=== PATIENT | male | born 1945 | race Hispanic/Latino ===

== ENCOUNTER 2018-07-04 19:16 | Inpatient (IN) | payer MEDICARE ==
[~2018-07-04] VITALS: Ht 172.7 cm; Wt 83.9 kg
[~2018-07-04 19:16] MED LIST: OMEGA FISH OIL PO; TAMSULOSIN HCL0.4 MG PO; VITAMIN D PO
--- OUTSIDE RECORDS SUMMARY | 2018-07-04 19:19 | XMS REPORT | Summary of Care ---
Author Author [facility] [place] Organization [facility] [place] Address Unknown Phone Unavailable Encounter HQ Encntr_alias(FIN) [id number] Date(s): 11/08/16 - 11/08/16 [facility] [place] [address] [place] [phone] Discharge Disposition: Home or Self Care Attending Physician: Walker Larry MD Vital Signs No data available for this section Problem List No data available for this section Allergies, Adverse Reactions, Alerts No data available for this section Medications No data available for this section Results No data available for this section Immunizations No data available for this section Procedures No data available for this section Social History No data available for this section Assessment and Plan No data available for this section
--- OUTSIDE RECORDS SUMMARY | 2018-07-04 19:19 | XMS REPORT | Summary of Care ---
Author Organization Unknown Address Unknown Phone Unavailable Encounter HQ Encntr_alex(DEE DEE) [id number] Date(s): 06/26/14 - 06/26/14 [facility] [address] Discharge Disposition: Home Physician Attending: Amadou Baker MD Physician_Referring: Amadou aBker MD Reason for Visit 789.00 ABD` PAIN Problem List No data available for this section Allergies, Adverse Reactions, Alerts No data available for this section Medications No data available for this section Medications Administered During Your Visit No data available for this section Immunizations No data available for this section
--- OUTSIDE RECORDS SUMMARY | 2018-07-04 19:19 | XMS REPORT | Summary of Care ---
Author Author [facility] [place] Organization [facility] [place] Address Unknown Phone Unavailable Encounter HQ Encntr_alias(FIN) [id number] Date(s): 11/08/16 - 11/08/16 [facility] [place] [address] [place] [phone] Discharge Disposition: Home or Self Care Attending [...]
[2018-07-04] MEDS ORDERED: ASPIRIN 81 MG CHEW TAB PO ONE (19:45)
[2018-07-04] MEDS ORDERED: CEFTRIAXONE SOD 1 GM VIAL IV ONE (19:45)
[2018-07-04 19:50] LABS: BASOPHILS % 0.5 % (0.0-1.0); EOSINOPHILS % 0.5 % (0.0-6.0); HEMATOCRIT 32.6 % (38.2-49.6); HEMOGLOBIN 11.5 g/dL (14.0-18.0); LYMPHOCYTES # (AUTO) 0.4 (1.0-3.2); LYMPHOCYTES % 20.4 % (18.0-39.1); MEAN CORPUSCULAR HEMOGLOBIN 30.6 pg (28-32); MEAN CORPUSCULAR HGB CONC 35.3 g/dL (31-35); MEAN CORPUSCULAR VOLUME 86.7 fL (81-99); MONOCYTES # (AUTO) 0.1 (0.2-0.8); MONOCYTES % 6.5 % (4.4-11.3); NEUTROPHILS # (AUTO) 1.5 (2.1-6.9); NEUTROPHILS % 70.7 % (38.7-80.0); PLATELET COUNT 181 x10e3/uL (140-360); RED BLOOD COUNT 3.76 x10e6/uL (4.3-5.7); RED CELL DISTRIBUTION WIDTH 12.5 % (11.7-14.4)
[2018-07-04 19:58] LABS: INR 1.02; PROTHROMBIN TIME 14.3 seconds (11.9-14.5)
[2018-07-04 20:00] LABS: STREPTOCOCCUS GRP A ANTIGEN NEGATIVE (NEGATIVE)
--- NOTE | 2018-07-04 20:05 | Diagnostic Imaging Report ---
EXAMINATION: CHEST 2 VIEWS INDICATION: Strong cough and congestion for 2 weeks. COMPARISON: 05/02/2017. FINDINGS: TUBES and LINES: None. LUNGS: Lungs are well inflated. Mild perihilar, peribronchial thickening. There is no evidence of pneumonia or pulmonary edema. PLEURA: No pleural effusion or pneumothorax. HEART AND MEDIASTINUM: The cardiomediastinal silhouette is unremarkable. BONES AND SOFT TISSUES: No acute osseous lesion. UPPER ABDOMEN: No free air under the diaphragm. IMPRESSION: Mild perihilar, peribronchial thickening. No consolidation. Signed by: Dr. Gladis Amor M.D. on 07/04/2018 8:01 PM
[2018-07-04 20:07] LABS: CREATINE KINASE 103 IU/L (30-200)
[2018-07-04 20:08] LABS: INFLUENZAE A&B ANTIGEN (RAPID) NEGATIVE (NEGATIVE)
[2018-07-04 20:09] LABS: ALANINE AMINOTRANSFERASE 20 IU/L (0-55); ALBUMIN 3.3 g/dL (3.5-5.0); ALBUMIN/GLOBULIN RATIO 0.8 (0.8-2.0); ALKALINE PHOSPHATASE 60 IU/L (40-150); ANION GAP 11.5 mmol/L (8-16); BLOOD UREA NITROGEN 14 mg/dL (7-26); BUN/CREATININE RATIO 16 (6-25); CALCIUM 8.6 mg/dL (8.4-10.2); CARBON DIOXIDE 23 mmol/L (22-29); CHLORIDE 96 mmol/L (98-107); CREATININE, SERUM 0.88 mg/dL (0.72-1.25); EST GLOMERULAR FILTRATION RATE > 60 ML/MIN (60-); GLUCOSE 138 mg/dL (74-118); POTASSIUM 3.5 mmol/L (3.5-5.1); SODIUM 127 mmol/L (136-145)
[2018-07-04] MEDS ORDERED: ALBUTEROL SULF 0.083% NEB SOLN 3 ML NEB NEB STA (20:19)
[2018-07-04] MEDS ORDERED: IPRATROPIUM BROMIDE 0.02% 2.5 ML NEB NEB STA (20:19)
[2018-07-04] MEDS: CEFTRIAXONE SOD 1 GM VIAL IV SCH (20:32)
[2018-07-04] MEDS: ALBUTEROL SULF 0.083% NEB SOLN 3 ML NEB NEB SCH (20:40)
--- OUTSIDE RECORDS SUMMARY | 2018-07-04 21:06 | XMS REPORT ---
Author Author [facility] Address Unknown Phone Unavailable Care Team Providers Care Electromedical Service Engineer Name Role Phone Missy CACERES Unavailable Unavailable HAMPEL, LISBET Unavailable Unavailable Problems This patient has no known problems. Allergies, Adverse Reactions, Alerts This patient has no known allergies or adverse reactions. Medications This patient has no known medications. Results Test Description Test Time Test Comments Text Results Atomic Results Result Comments CHEST 2 VIEWS 2018-07-04 20:00:00 [place] [address] Patient Name: JAIME ZARAGOZA MR #: [id number] : 1945 Age/Sex: 73/M Req #: [id number] Adm Physician: Ordered by: CAROL CACERES MD Report #: [id number] Location: ER Room/Bed: Procedure: [id number] DX/CHEST 2 VIEWS Exam Date: Exam Time: REPORT STATUS: Signed EXAMINATION: CHEST 2 VIEWS INDICATION: Strong cough and congestion for 2 weeks. COMPARISON: 05/02/2017. FINDINGS: TUBES and LINES: None. LUNGS: Lungs are well inflated. Mild perihilar, peribronchial thickening. There is no evidence of pneumonia or pulmonary edema. PLEURA: No pleural effusion or pneumothorax. HEART AND MEDIASTINUM: The cardiomediastinal silhouette is unremarkable. BONES AND SOFT TISSUES: No acute osseous lesion. UPPER ABDOMEN: No free air under the diaphragm. IMPRESSION: Mild perihilar, peribronchial thickening. No consolidation. Signed by: Dr. Gladis Alfredo M.D. on 07/04/2018 8:01 PM Dictated By: KISHAN ALFREDO MD, MD 00 Transcribed By: STEPHAN on 07/04/182000 COPY TO: CAROL CACERES MD CHEST 2 VIEWS [place] [address] Patient Name: JAIME ZARAGOZA MR #: [id number] : 1945 Age/Sex: 72/M Req #: [id number] Adm Physician: Ordered by: LISBET BROOKS MD Report #: [id number] Location: OR Room/Bed: Procedure: [id number] DX/CHEST 2 VIEWS Exam Date: 05/02/17 Exam Time: 1330 REPORT STATUS: Signed PROCEDURE: Frontal and lateral views of the chest. COMPARISON: None. INDICATIONS: PRE OPERATIVE CHEST X-RAY UROLIFT FINDINGS: Lines/tubes: None. Lungs: The lungs are well inflated and clear. There is no evidence of pneumonia or pulmonary edema. Pleura: There is no pleural effusion or pneumothorax. Heart and mediastinum: The heart and the mediastinum are normal. Bones: No acute bony abnormality. IMPRESSION: 1. No acute cardiopulmonary disease. Gladis Alfredo M.D. Dictated by: Gladis Alfredo M.D. on 05/02/2017 at 14:11 Electronically approved by: Gladis Alfredo M.D. on 05/02/2017 at 14:11 Dictated By: KISHAN ALFREDO MD, MD 10 Transcribed By: JOSE GUADALUPE on 05/02/171410 COPY TO: LISBET BROOKS MD
--- OUTSIDE RECORDS SUMMARY | 2018-07-04 21:06 | XMS REPORT | Continuity of Care Document ---
Author Author [facility] Address Unknown Phone Unavailable Problems Problem Status Onset Date Classification Date Reported Comments Source DX: R10.84=GENERALIZED ABDOMINAL PAIN Active 07/25/2016 [facility] K80.20 - CALCULUS OF GALLBLADDER W/O CH Active 07/05/2016 [facility] [place] 789.00 ABD` PAIN Active 06/24/2014 [facility] GENERALIZED ABDOMINAL PAIN Active [facility] Medications Medication Details Route Status Patient Instructions Ordering Provider Order Date Source Allergies, Adverse Reactions, Alerts Substance Category Reaction Severity Reaction type Status Date Reported Comments Source Immunizations Immunization Date Given Site Status Last Updated Comments Source Results Order Name Results Value Reference Range Date Interpretation Comments Source Retroperitoneal Complete US Retroperitoneal Complete US EXAM: Retroperitoneal Complete US HISTORY: N18.2 Chronic kidney disease, stage 2 (mild) COMPARISON: 08/01/2016 FINDINGS: Right kidney: Length and cortical thickness are 11.2 and 2.2 cm, respectively. No hydronephrosis, suspicious mass, or large shadowing calculus. There is a 3 cm cyst in the superior pole the right kidney which is simple. Left Kidney: Length and cortical thickness are 11.5 and 2.1 cm, respectively. No hydronephrosis, suspicious mass, or large shadowing calculus. There are 2 subcentimeter cyst arising from the left kidney which also appears simple and possibly new. Bladder: No wall thickening, mural nodularity, or suspicious intraluminal echoes are identified. Bilateral ureteral jets are patent. The prostate measures 3.7 x 4.3 x 5.5 cm in Vascular: Visualized portions of the IVC are patent. There is no obvious aneurysmal dilatation of the aorta. The origins of the common iliac arteries are not seen sonographically. IMPRESSION: Simple renal cysts. The largest cyst is stable. 11/08/2016 - - Read by: Kiesha Odom MD Dictated Date/time: 11/08/16 13:36 Electronically Signed by: Kiesha Odom MD 11/08/16 13:38 FINAL REPORT [facility] [place] Abdomen AP DX Abdomen AP DX Patient Name: AMADOU MARTINEZ : 1945; Age: 71 years y/o Male MR: [id number] * ABDOMEN, 1 view HISTORY: Generalized nonspecific abdominal pain, hematuria. COMPARISON: None TECHNIQUE: A supine radiograph of the abdomen was obtained. IMPRESSION: 1. Cholelithiasis. Numerous gallstones are noted, the largest measuring approximately 13 x 8 mm. 2. No definite urinary tract calculi are identified. 3. There is a moderate amount of fecal material within the colon (constipation). The bowel gas pattern is otherwise unremarkable. 4. Mild to moderate scattered degenerative changes involving the lumbar spine. SL: [id number] 08/01/2016 - - Read by: Lio Flores MD Dictated Date/time: 08/01/16 08:04 Electronically Signed by: Lio Flores MD 08/01/16 08:06 FINAL REPORT [facility] Abdomen complete US Abdomen complete US Patient Name: AMADOU MARTINEZ : 1945; Age: 71 years y/o Male MR: [id number] Study: Abdomen complete US 08/01/2016 7:10 AM CLINICAL DIETICIAN Ordering Physician: Noemi Cardozo MD Clinical Indication: hematuria; generalized acute abdominal pain Comparison: Abdomen ultrasound 06/26/2014. TECHNIQUE: Grayscale and limited color sonographic evaluation of the abdomen was performed with standard technique. FINDINGS: LIVER: The visualized liver shows normal contour, size, and morphology with normal parenchymal echo texture. BILE DUCTS: The intrahepatic and extrahepatic bile ducts are not dilated with the common bile duct measuring 5 mm. The distal common bile duct is not well seen. GALLBLADDER: Absent. PANCREAS: The pancreas is obscured by overlying bowel gas and inadequately visualized. SPLEEN: The spleen is unremarkable and measures 11 x 4 x 4 cm. KIDNEY: The right kidney measures 10 x 5 x 6 cm. 2.7 cm cyst right renal upper pole cortex with simple characteristics. The left kidney measures 10.7 x 4.5 x 4.8 cm. No pelvocaliectasis, nephrolithiasis or renal mass lesion identified bilaterally. AORTA AND INFERIOR VENA CAVA: Proximal aorta poorly seen secondary to bowel gas. Mid and distal aorta nonaneurysmal. Visualized IVC normal. ASCITES: There is no abdominal ascites. IMPRESSION: Prior cholecystectomy. No pathologic biliary ductal dilatation or acute biliary findings. 2.7 cm right renal upper pole simple cyst. No solid renal mass or calculus is identified. Note that the urinary bladder was not specifically evaluated by this study. In the event hematuria persists, consider further workup with dedicated renal CT, considering the limitations of ultrasound related to this patient's body habitus. SL: [id number] 08/01/2016 - - Read by: Herman Mike MD Dictated Date/time: 08/01/16 10:43 Electronically Signed by: Herman Mike MD 08/01/16 11:00 FINAL REPORT [facility] Vital Signs Vital Sign Value Date Comments Source Encounters Location Location Details Encounter Type Encounter Number Reason For Visit Attending Provider ADM Date DC Date Status Source [facility]patient [id number] Amadou Baker 06/26/2014 06/27/2014 [facility] [place] [facility] [id number] Walker Larry 11/08/2016 11/09/2016 [facility] Procedures Procedure Code Date Perfomer Comments Source
[2018-07-04] MEDS: AZITHROMYCIN 500MG/NS 250 ML 250 ML IV SCH (21:33)
[2018-07-04] MEDS: SODIUM CHLORIDE 0.9% 1000ML 1,000 ML IV SCH (21:33)
[2018-07-04] MEDS ORDERED: CETIRIZINE HCL10 MG PO (21:53)
[2018-07-04] MEDS ORDERED: LISINOPRIL10 MG PO (21:53)
[2018-07-05] MEDS: ACETAMINOPHEN 325 MG TAB PO PRN ×3 (00:11→16:41)
[2018-07-05] MEDS: ALBUTEROL SULF 0.083% NEB SOLN 3 ML NEB NEB SCH ×5 (00:40→23:12)
[2018-07-05 04:59] LABS: BASOPHILS % 0.5 % (0.0-1.0); HEMATOCRIT 28.4 % (38.2-49.6); HEMOGLOBIN 9.9 g/dL (14.0-18.0); LYMPHOCYTES # (AUTO) 0.6 (1.0-3.2); LYMPHOCYTES % 28.9 % (18.0-39.1); MEAN CORPUSCULAR HEMOGLOBIN 30.2 pg (28-32); MEAN CORPUSCULAR HGB CONC 34.9 g/dL (31-35); MEAN CORPUSCULAR VOLUME 86.6 fL (81-99); MONOCYTES # (AUTO) 0.2 (0.2-0.8); MONOCYTES % 7.9 % (4.4-11.3); NEUTROPHILS # (AUTO) 1.2 (2.1-6.9); NEUTROPHILS % 61.6 % (38.7-80.0); PLATELET COUNT 143 x10e3/uL (140-360); RED BLOOD COUNT 3.28 x10e6/uL (4.3-5.7); RED CELL DISTRIBUTION WIDTH 12.7 % (11.7-14.4)
[2018-07-05 05:12] LABS: CREATINE KINASE 76 IU/L (30-200)
[2018-07-05] MEDS: IPRATROPIUM BROMIDE 0.02% 2.5 ML NEB NEB SCH ×3 (07:15→19:48)
[2018-07-05 08:12] LABS: ANISOCYTOSIS SLIGHT; BAND NEUTROPHILS % (MANUAL) 2 %; HYPOCHROMASIA MODERATE; LYMPHOCYTES % (MANUAL) 28 % (19-48); MONOCYTES % (MANUAL) 6 % (3.4-9.0); NEUTROPHILS % (MANUAL) 64 % (40-74)
[2018-07-05 08:13] LABS: PLATELET ESTIMATE SLIGHTLY DECREASED; PLATELET MORPHOLOGY COMMENT NORMAL; RBC MORPHOLOGY COMMENT NORMAL
--- NOTE | 2018-07-05 10:17 | History and Physical ---
Mr. Napoles is a 73-year-old man with a history of hyperlipidemia. Brought to the emergency room because for 2 weeks he has been having body aches, fatigue, sore throat, cough with phlegm, and fever. He was treated as an outpatient and saw the doctor twice, but he did not get better, so he decided to come to the emergency room. PAST MEDICAL HISTORY: Hyperlipidemia. SURGICAL HISTORY: Had a cholecystectomy and prostate surgery. ALLERGIES: NO KNOWN DRUG ALLERGIES. SOCIAL HISTORY: He does not smoke, but he used to drink beer. He quit 2 years ago. PHYSICAL EXAMINATION GENERAL: Today, he is awake and alert. VITALS: Temperature 98.5, blood pressure 123/61. HEART: Regular rate. LUNGS: Decreased breath sounds bilaterally. ABDOMEN: Distended and soft. LOWER EXTREMITIES: No edema. No erythema. LABS: On the blood work, white count is 1.9, hemoglobin 9.9, hematocrit 28.4. Sodium 127, potassium 3.5, glucose 138. Influenza negative. Strep negative. Legionella is pending. Blood cultures and throat cultures are pending. Chest x-ray shows mild perihilar, peribronchial thickening. No consolidation. ASSESSMENT AND PLAN 1. Probable pneumonia. 2. Hyperlipidemia. 3. Elevated blood sugar. 4. Leukopenia. 5. Anemia. The plan at the present time is to get a pulmonary consult with Dr. Ewing. We are going to continue IV antibiotics, azithromycin and Rocephin. Neb treatments. Cough medications. All of this was discussed with the patient and family at bedside. All questions were answered to satisfaction. Job#: [id number]
[2018-07-05] MEDS ORDERED: SODIUM CHLORIDE 0.9% 50ML 50 ML ONE (11:45)
[2018-07-05] MEDS ORDERED: IOPAMIDOL 370 MG/ML 200 ML INFUS..BTL INJ ONE (11:46)
--- NOTE | 2018-07-05 11:57 | Diagnostic Imaging Report ---
EXAM: CT Chest WITH contrast 07/05/2018 9:58 AM INDICATION: ^PER DR PABLO ^[id number] ^1100 COMPARISON: Chest radiograph 07/04/2018 TECHNIQUE: Chest was scanned utilizing a multidetector helical scanner from the lung apex through the level of the adrenal glands after administration of IV contrast. Coronal and sagittal reformations were obtained. IV CONTRAST: 100 mL Omnipaque 300 ORAL CONTRAST: None COMPLICATIONS: None RADIATION DOSE: Total DLP: 481.7 mGy*cm Estimated effective dose: (DLP x 0.015 x size factor) mSv CTDIvol has been reviewed. It is below the limits set by the Radiation Protocol Committee (RPC). FINDINGS: LINES/ TUBES: None. LUNGS AND AIRWAYS: Diffuse bilateral central peribronchial wall thickening with associated septal thickening and faint bilateral groundglass opacities. No lobar consolidations. Indeterminate 4 mm solid pulmonary nodule in the right upper lobe on series 3, image 33. Subsegmental atelectasis in both lower lobes. There is moderate narrowing of the proximal right upper lobe pulmonary bronchus on series 3, image 49 due to a combination of adjacent hilar lymphadenopathy and compression by the adjacent pulmonary artery. PLEURA: The pleural spaces are clear. HEART AND MEDIASTINUM: The thyroid gland is normal. Few mildly enlarged mediastinal and bilateral hilar note calcified lymph nodes. For example: 1.4 cm transverse diameter lymph node in the right lower paratracheal region (4R) 0.8 cm left para-aortic lymph node 1.9 cm right hilar lymph node on series 2, image 52. Mild cardiomegaly. There is no pericardial effusion. No coronary artery calcifications. The thoracic aorta is unremarkable. The main pulmonary artery is borderline in size measuring 3 cm in diameter. UPPER ABDOMEN: Unremarkable. BONES: The visualized bony thorax is within normal limits. SOFT TISSUES: Unremarkable. IMPRESSION: 1. CT findings suggestive of pulmonary edema with possible superimposed viral infection. 2. Mediastinal and bilateral hilar lymphadenopathy may be reactive but recommend follow-up in 6-[address] chest with IV contrast to demonstrate stability and exclude lymphoproliferative disorder. 3. Mild cardiomegaly. Recommend further evaluation with echocardiogram if not obtained yet. 4. No lobar consolidations. Signed by: Dr. Carrie Sanders M.D. on 07/05/2018 11:54 AM
--- NOTE | 2018-07-05 13:05 | Consultation ---
DATE OF CONSULTATION: PULMONARY CONSULTATION REASON FOR THE CONSULT: Cough, shortness of breath. HISTORY OF PRESENT ILLNESS: Mr. Napoles is a 73-year-old male with a history of hypertension, hyperlipidemia, presented to the emergency room with cough, congestion and sore throat. He reports that all these symptoms started 2 days ago and progressively got worse. He denies any complaints of chest pain, nausea, vomiting, diarrhea. REVIEW OF SYSTEMS GENERAL: Denies any fever. Was having chills. HEAD: Denies any head trauma. ENT: Denies any earache. CVS: Denies any chest pain. RESPIRATORY: Shortness of breath. GI: Denies any nausea or vomiting. REMAINDER: The rest of the review of systems are negative except as in the HPI. PAST MEDICAL HISTORY 1. Hypertension. Patient is on lisinopril. 2. Benign prostatic hypertrophy. PAST SURGICAL HISTORY 1. Cholecystectomy. 2. Prostate surgery. FAMILY AND SOCIAL HISTORY: Does not smoke, does not drink. PHYSICAL EXAMINATION VITAL SIGNS: Temperature 98.5, pulse of 73, blood pressure 123/61, respiratory rate of 18, O2 sat 98% on room air. HEENT: Head atraumatic, normocephalic. Pupils reactive. NECK: Supple. CHEST: Clear to auscultation bilaterally. No wheezing, no crackles. HEART: S1/S2 audible. ABDOMEN: Soft, nontender, nondistended. EXTREMITIES: No clubbing, cyanosis or edema. NEUROLOGICALLY: Awake and alert. LABS: Sodium 127, potassium 3.5, BUN 14, creatinine 0.8. Troponins have been negative. White count 1.90, was 2.16 yesterday. Hemoglobin 9.9. Platelets 143. INR is 1.02. CHEST X-RAY: I have reviewed the images. Possible new pneumonia like peribronchial thickening. ASSESSMENT/PLAN: Mr. Napoles is a 73-year-old male who presented with cough, congestion, hyponatremia and leukopenia. CURRENT PROBLEMS 1. Likely has pneumonia. The chest x-ray is not very classic for pneumonia. I will do a CT chest without contrast and follow up. 2. Cytopenias. Could be due to infections. Will closely follow. 3. Hyponatremia. Also can be part of lung infection. Can have possibility of lung mass that can cause hyponatremia as well. Further recommendation after reviewing the CT of the chest. 4. Agree with Rocephin and azithromycin at this point. Thank you for this consult. Job#: [id number] EV
[2018-07-05 14:02] LABS: CREATINE KINASE MB 1.4 ng/mL (0-5.0)
[2018-07-05 15:40] VITALS: BP 143/63
[2018-07-05] MEDS: SODIUM CHLORIDE 0.9% 1000ML 1,000 ML IV SCH (16:40)
[2018-07-05 16:41] VITALS: BP 143/63
[2018-07-05 20:00] VITALS: BP 120/64
[2018-07-05] MEDS: CEFTRIAXONE SOD 1 GM VIAL IV SCH (20:56)
[2018-07-05] MEDS: AZITHROMYCIN 500MG/NS 250 ML 250 ML IV SCH (20:57)
[2018-07-06] MEDS: ALBUTEROL SULF 0.083% NEB SOLN 3 ML NEB NEB SCH ×5 (02:30→20:35)
[2018-07-06] MEDS: IPRATROPIUM BROMIDE 0.02% 2.5 ML NEB NEB SCH ×4 (02:30→20:35)
[2018-07-06 04:00] VITALS: BP 133/67
[2018-07-06] MEDS: SODIUM CHLORIDE 0.9% 1000ML 1,000 ML IV SCH (04:25)
[2018-07-06 06:24] LABS: HEMATOCRIT 30.9 % (38.2-49.6); HEMOGLOBIN 10.7 g/dL (14.0-18.0); MEAN CORPUSCULAR HEMOGLOBIN 30.3 pg (28-32); MEAN CORPUSCULAR HGB CONC 34.6 g/dL (31-35); MEAN CORPUSCULAR VOLUME 87.5 fL (81-99); PLATELET COUNT 154 x10e3/uL (140-360); RED BLOOD COUNT 3.53 x10e6/uL (4.3-5.7); RED CELL DISTRIBUTION WIDTH 12.8 % (11.7-14.4)
[2018-07-06 06:45] LABS: ANION GAP 10.9 mmol/L (8-16); BLOOD UREA NITROGEN 9 mg/dL (7-26); BUN/CREATININE RATIO 11 (6-25); CALCIUM 8.2 mg/dL (8.4-10.2); CARBON DIOXIDE 25 mmol/L (22-29); CHLORIDE 99 mmol/L (98-107); CREATININE, SERUM 0.85 mg/dL (0.72-1.25); EST GLOMERULAR FILTRATION RATE > 60 ML/MIN (60-); GLUCOSE 115 mg/dL (74-118); POTASSIUM 3.9 mmol/L (3.5-5.1); SODIUM 131 mmol/L (136-145)
[2018-07-06 08:20] VITALS: BP 133/67
[2018-07-06 08:56] VITALS: BP 129/62
--- NOTE | 2018-07-06 09:39 | Progress Note ---
DATE: July 06, 2018 Mr. Napoles is a 73-year-old man with a history of hyperlipidemia. He came to the emergency room complaining of 3 weeks of body aches, fatigue, cough and fever. He was treated as an outpatient twice, but he did not improve, so he decided to come to the emergency room. PHYSICAL EXAMINATION GENERAL: Today, he is awake and alert. He is still coughing. VITALS: Temperature is 99.8. Blood pressure is 133/67. HEART: Regular rate. LUNGS: Poor inspiratory effort. ABDOMEN: Soft. LABS: On the blood work, potassium is 3.9, creatinine 0.85. White count is 2.26, hemoglobin 10.7, hematocrit 30.9. He had a CAT scan done yesterday of the chest that shows findings suggestive of pulmonary edema with possible superimposed viral infection. Some hilar lymphadenopathy. Mild cardiomegaly. ASSESSMENT AND PLAN 1. CT findings compatible with pulmonary edema. 2. Viral pneumonia. 3. Hyperlipidemia. 4. Elevated blood sugar. 5. Leukopenia. 6. Anemia. The plan at the present time is to continue IV antibiotics, nebulizer treatments. Fruit Grower already saw the patient. We are going to get cardiology consult with Dr. Casiano. All of this was discussed with the patient and family at bedside. All questions were answered to satisfaction. Job#: [id number]
[2018-07-06 09:42] LABS: ANISOCYTOSIS SLIGHT; BAND NEUTROPHILS % (MANUAL) 3 %; HYPOCHROMASIA SLIG; LYMPHOCYTES % (MANUAL) 13 % (19-48); MONOCYTES % (MANUAL) 4 % (3.4-9.0); NEUTROPHILS % (MANUAL) 80 % (40-74); PLATELET ESTIMATE ADEQUATE; PLATELET MORPHOLOGY COMMENT NORMAL; RBC MORPHOLOGY COMMENT NORMAL
[2018-07-06 12:01] VITALS: BP 134/64
[2018-07-06] MEDS: ACETAMINOPHEN 325 MG TAB PO PRN (16:02)
[2018-07-06 16:47] VITALS: BP 140/67
--- NOTE | 2018-07-06 19:08 | Consultation ---
DATE OF CONSULTATION: July 06, 2018 CARDIOLOGY CONSULTATION REQUESTING PHYSICIAN: Dr. Nica Fagan. REASON FOR CONSULTATION: Pulmonary edema. HISTORY OF PRESENT ILLNESS: This is a 73-year-old man with history of hyperlipidemia and hypertension, who presents with complaints of cough and congestion. Patient reports he has been having productive cough with phlegm for approximately last 2 weeks as well as subjective fever. She denies any chest pain, palpitations, shortness of breath, edema, orthopnea or PND. Due to suspected pneumonia, patient had CT chest which revealed pulmonary edema with possible superimposed viral infection, mediastinal, and bilateral hilar lymphadenopathy as well as mild cardiomegaly. Cardiology was consulted for further evaluation. REVIEW OF SYSTEMS: Negative except as per HPI. PAST MEDICAL HISTORY 1. Hypertension. 2. Hyperlipidemia. PAST SURGICAL HISTORY 1. Cholecystectomy. 2. Prostate surgery. ALLERGIES: Please see EMR. MEDICATIONS: Please see medication list. SOCIAL HISTORY: Denies tobacco, alcohol or illicit drugs. FAMILY HISTORY: Noncontributory to current illness. PHYSICAL EXAMINATION VITAL SIGNS: Temperature 99.1 degrees, pulse 77, respiratory rate 16, blood pressure 134/64, oxygen saturation 97%. GENERAL: Awake and alert, well-developed, well-nourished, in no acute distress. HEENT: Normocephalic, atraumatic. Pupils are equal. No scleral icterus. NECK: Supple. No thyromegaly or cervical lymphadenopathy. No carotid bruit. LUNGS: Clear to auscultation bilaterally. No wheezes or crackles. CARDIOVASCULAR: Normal rate, regular rhythm. No murmur. Normal S1 and S2. ABDOMEN: Soft and nontender. EXTREMITIES: No edema. NEURO: Nonfocal exam. LABS: WBC 2.26, hemoglobin 10.7, hematocrit 30.9, and platelets 154. Sodium 131, potassium 3.9, chloride 99, CO2 of 25, BUN 9, creatinine 0.85. BNP 26.4. IMPRESSION 1. CT finding suggestive of pulmonary edema with cardiomegaly. 2. Viral pneumonia. 3. Hyperlipidemia. 4. Hypertension. 5. Leukopenia. 6. Anemia. RECOMMENDATIONS: No evidence of myocardial infarction was seen on serial cardiac biomarkers. We will obtain EKG and echocardiogram for further evaluation. Check BNP. Further recommendations pending test results. Thank you for this consult. We will continue to follow. Job#: [id number] VAS
[2018-07-06] MEDS: AZITHROMYCIN 500MG/NS 250 ML 250 ML IV SCH (20:28)
[2018-07-06] MEDS: METHYLPREDNISOLONE SOD SUCC 40 MG/ML VIAL IV SCH (20:28)
[2018-07-06] MEDS: CEFTRIAXONE SOD 1 GM VIAL IV SCH (20:28)
[2018-07-06] MEDS: BUDESONIDE 0.5MG/2 ML NEB INH SCH (20:35)
[2018-07-06 21:04] VITALS: BP 131/60
[2018-07-07] VITALS: BP 137/64
[2018-07-07] MEDS: ALBUTEROL SULF 0.083% NEB SOLN 3 ML NEB NEB SCH ×5 (00:10→15:00)
[2018-07-07 04:34] VITALS: BP 118/56
[2018-07-07] MEDS: IPRATROPIUM BROMIDE 0.02% 2.5 ML NEB NEB SCH ×3 (04:35→10:30)
[2018-07-07] MEDS: BUDESONIDE 0.5MG/2 ML NEB INH SCH (07:00)
[2018-07-07 07:35] VITALS: BP 147/76
[2018-07-07 07:38] VITALS: BP 147/76
[2018-07-07] MEDS: METHYLPREDNISOLONE SOD SUCC 40 MG/ML VIAL IV SCH (09:00)
[2018-07-07 11:42] VITALS: BP 142/69
--- NOTE | 2018-07-07 14:42 | Consultation ---
DATE OF CONSULTATION: REASON FOR CONSULTATION: Pneumonia, community acquired. HISTORY OF PRESENT ILLNESS: This patient who is a very pleasant 73-year-old male who has history of hyperlipidemia, comes in to the emergency room with 2 weeks' history of body aches, fatigue, sore throat, and cough. He said cough is whitish of sputum. He told the physician in the emergency room that he was running fever in the house, so he was admitted but when I met with him today now he says he is feeling much better. His breathing is better. His cough is better. He said there was no fever. The patient has history of hyperlipidemia, cholecystectomy, some type of prostate surgery. ALLERGIES: NKA. SOCIAL HISTORY: There is no smoking, drug abuse, or alcohol abuse. FAMILY HISTORY: Noncontributory. REVIEW OF SYSTEMS GENERAL: At the present time, the patient is doing much better as mentioned above. HEENT: Negative. PULMONARY: Negative except for mentioned above. GI: Negative. SKIN: There is no rash. All other systems are within normal limits except for the cough which he says is better and he says there is minimum cough at the present time. Patient was admitted. He had a CAT scan, chest, was reviewed. His blood cultures were negative. His white count is 2.26, now 2.16. Hemoglobin 11, hematocrit 32, his platelets 181. His influenza is negative. PHYSICAL EXAMINATION GENERAL: He is currently alert, oriented, does not seem to be in acute distress. VITALS: Stable. Currently afebrile. HEENT: He does not appear icteric. NECK: Supple. CHEST: Clear. COR: S1, S2. ABDOMEN: Soft. Bowel sounds present. EXTREMITIES: No edema. IMPRESSION 1. Pneumonia, community acquired. Clinically seems to be better. Can give oral Levaquin 500 mg p.o. daily for 8 days. 2. Pulmonary edema. Cardiology is following. 3. Abnormal computed tomography scan. I would recommend to recheck in 6 months. 4. Leukopenia. I would recommend to obtain human immunodeficiency virus. May need hematology/oncology. He would probably need followup. This could be early bone marrow disorder. 5. We will follow with you. Job#: [id number] SEEMA
[2018-07-07 16:07] LABS: HIV 1&2 AB SCREEN NON-REACTIVE (NONREACTIVE)
[2018-07-07 16:16] VITALS: BP 158/72
--- NOTE | 2018-07-07 18:56 | Progress Note ---
DATE: July 07, 2018 CARDIOLOGY PROGRESS NOTE SUBJECTIVE: Patient denies chest pain or shortness of breath. OBJECTIVE VITAL SIGNS: Temperature 96.6 degrees, pulse 68, respiratory rate 18, blood pressure 142/69, oxygen saturation 100%. GENERAL: Awake and alert, in no acute distress. LUNGS: Clear to auscultation bilaterally. No wheezes or crackles. CARDIOVASCULAR: Normal rate, regular rhythm. No murmur. Normal S1, S2. ABDOMEN: Soft, nontender. EXTREMITIES: No edema. CARDIAC MEDICATIONS: None. LABS: None today. IMPRESSION 1. CT findings suggestive of pulmonary edema with cardiomegaly. 2. Viral pneumonia. 3. Hyperlipidemia. 4. Hypertension. 5. Leukopenia. 6. Anemia. RECOMMENDATIONS: No evidence of myocardial infarction was seen on serial cardiac biomarkers. Echocardiogram was technically difficult, but LV function appears preserved with impaired relaxation. A 2-gram sodium restriction, 2 liter fluid restriction. Heart-healthy diet. Blood pressure control. Please have patient follow up with us as an outpatient for further evaluation. Thank you for this consult. We will continue to follow. Job#: [id number] VAS
--- NOTE | 2018-07-08 02:29 | Discharge Summary ---
BRIEF HISTORY AND HOSPITAL COURSE: Patient is doing well today. He was admitted originally with acute bronchitis with asthmatic component. Patient was started on IV antibiotics. He was found to have some lymphadenopathy on a chest CT, which has to be followed as an outpatient. PHYSICAL EXAM HEART: Regular rhythm. Normal S1 and S2 sounds. LUNGS: Clear bilaterally. ABDOMEN: Soft. EXTREMITIES: No evidence of cyanosis or trauma. LABORATORY DATA: On the BMP, sodium 131, potassium 3.9, chloride 99, CO2 25, BUN 9, creatinine 0.85, and glucose 115. On the CBC, white blood count 2.26, hemoglobin 10.7, hematocrit 30.9, and platelet count 154,000. PT 14.3, INR 1.02, and PTT 34.0. AST 25, ALT 20, total bilirubin 0.6, and alkaline phosphatase 60. FINAL IMPRESSION 1. Acute bronchitis with asthmatic component. 2. Hypertension. 3. Benign prostatic hypertrophy. PLAN OF TREATMENT: He is going to be discharged on Z-Landon, Medrol Dosepak to take as directed. Continue with Combivent 2 puffs every 4 hours as needed for shortness of breath. He is going to be on Symbicort 160/4.5 mcg 1 inhalation twice a day. Follow up with Dr. Prado and Dr. Fagan in 2 weeks. He is going to follow with Dr. Prado for the lymphadenopathy. chest CT, which can be done as an outpatient. Job#: [id number] RTY
== END 2018-07-07 17:26 | disposition home or self-care (01) | DRG 194 ==
LOC: ER 19:16 → ERHOLD 21:04 → MED/SURG3 07-05 15:03
PROVIDERS: ADMIT Internal Medicine; ATTEND Internal Medicine
DX: J12.9 Viral pneumonia, unspecified (principal); E87.1 Hypo-osmolality and hyponatremia; J81.1 Chronic pulmonary edema; E78.5 Hyperlipidemia, unspecified; D72.819 Decreased white blood cell count, unspecified; D64.9 Anemia, unspecified; R73.9 Hyperglycemia, unspecified; D75.9 Disease of blood and blood-forming organs, unspecified; J20.9 Acute bronchitis, unspecified; J45.909 Unspecified asthma, uncomplicated; R59.1 Generalized enlarged lymph nodes; N40.0 Benign prostatic hyperplasia without lower urinary tract symptoms; I11.9 Hypertensive heart disease without heart failure
CPT/HCPCS: 36415; 71046; 71260; 80048; 80053; 82550; 82553; 82948; 83518; 83880; 84484; 85007; 85025; 85027; 85610; 85730; 87040; 87070; 87086; 87390; 87400; 87449; 93306; 94640; 96361; 99284; G0433; G0435; J0456; J0696; J2920; J7030; Q9967

== ENCOUNTER 2018-07-15 09:56 | Observation (INO) | payer MEDICARE ==
[~2018-07-15] VITALS: Ht 172.7 cm; Wt 80.5 kg
[~2018-07-15 09:56] MED LIST changes: +CETIRIZINE HCL10 MG PO; +LISINOPRIL10 MG PO
--- NOTE | 2018-07-15 11:23 | Diagnostic Imaging Report ---
EXAMINATION: Head CT HISTORY: Syncopal episode, unresponsive COMPARISON: None. TECHNIQUE: Multidetector axial images were obtained without contrast from the foramen magnum to the vertex . The images were reconstructed using brain and bone algorithms. Thin section brain images were reformatted into coronal and sagittal planes. Intravenous contrast: None. Image quality: Motion/streaking artifact limits the evaluation of the skull base and posterior cranial fossa. Dose modulation, iterative reconstruction, and/or weight based adjustment of the mA/kV was utilized to reduce the radiation dose to as low as reasonably achievable. FINDINGS: Parenchyma: 1. A few scattered white matter hypodensities, most likely age-appropriate minimal chronic microvascular ischemic changes. 2. No mass or hemorrhage. No CT evidence of acute territorial vascular insult. Extra-axial spaces:No abnormal density. No extra-axial fluid collections Brain volume: Normal for age. Ventricles: No hydrocephalus or displacement. Arteries: No density suggestive of thrombus. Dural sinuses: No abnormal density. Extra-axial spaces: No abnormal density. Foramen magnum: No mass, Chiari malformation, or basilar invagination. Sella: No obvious mass. Paranasal/mastoid sinuses: Imaged portions unremarkable. Skull/Scalp: No lytic or blastic lesions. No fractures. IMPRESSION: 1. No acute intracranial abnormalities, particularly no mass, hemorrhage, cortical infarct or hydrocephalus. 2. Mild chronic microvascular ischemic changes. Signed by: Dr. Nataliya Banegas M.D. on 07/15/2018 11:20 AM
[2018-07-15 11:27] LABS: BASOPHILS % 0.3 % (0.0-1.0); EOSINOPHILS % 0.1 % (0.0-6.0); HEMATOCRIT 36.7 % (38.2-49.6); HEMOGLOBIN 12.4 g/dL (14.0-18.0); LYMPHOCYTES # (AUTO) 0.7 (1.0-3.2); LYMPHOCYTES % 9.9 % (18.0-39.1); MEAN CORPUSCULAR HEMOGLOBIN 30.4 pg (28-32); MEAN CORPUSCULAR HGB CONC 33.8 g/dL (31-35); MONOCYTES # (AUTO) 0.7 (0.2-0.8); NEUTROPHILS # (AUTO) 5.9 (2.1-6.9); NEUTROPHILS % 79.5 % (38.7-80.0); PLATELET COUNT 252 x10e3/uL (140-360); RED BLOOD COUNT 4.08 x10e6/uL (4.3-5.7); RED CELL DISTRIBUTION WIDTH 14.2 % (11.7-14.4)
[2018-07-15 11:29] LABS: BILIRUBIN,URINE NEGATIVE (NEGATIVE); CLARITY,URINE CLEAR (CLEAR); COLOR,URINE AMBER (YELLOW); KETONES,URINE NEGATIVE (NEGATIVE); LEUKOCYTE ESTERASE ,URINE NEGATIVE (NEGATIVE); NITRITE,URINE NEGATIVE (NEGATIVE); PROTEIN,URINE DIPSTICK 1+ (NEGATIVE); URINE UROBILINOGEN 0.2 mg/dL (0.2 - 1)
--- NOTE | 2018-07-15 11:32 | Diagnostic Imaging Report ---
EXAMINATION: CHEST 2 VIEWS INDICATION: Syncopal episode today while eating breakfast. Also shaking after eating piece of cake. ^near syncope ^[id number] ^[id number] ^Y COMPARISON: Chest radiograph 07/04/2018, chest CT 07/05/2018 FINDINGS: PA and lateral views TUBES and LINES: None. LUNGS: Lungs are well inflated. Lungs are clear. There is no evidence of pneumonia or pulmonary edema. PLEURA: No pleural effusion or pneumothorax. HEART AND MEDIASTINUM: The cardiomediastinal silhouette is unremarkable. Mediastinal and hilar adenopathy better seen on chest CT 07/05/2018. BONES AND SOFT TISSUES: No acute osseous lesion. Soft tissues are unremarkable. UPPER ABDOMEN: No free air under the diaphragm. Cholecystectomy clips. IMPRESSION: No acute thoracic abnormality. Signed by: DR. Richie Ortega MD on 07/15/2018 11:29 AM
[2018-07-15 11:33] LABS: INR 0.95; PROTHROMBIN TIME 13.5 seconds (11.9-14.5)
[2018-07-15 11:34] LABS: PARTIAL THROMBOPLASTIN TIME 26.1 seconds (23.8-35.5)
[2018-07-15 11:38] LABS: BACTERIA,URINE FEW /HPF; EPITHELIAL CELLS,URINE FEW /LPF; RBC,URINE 0-5 /HPF (0-5); WBC,URINE (MAN) 0-5 /HPF (0-5)
[2018-07-15 11:39] LABS: MUCUS,URINE MODERATE (RARE)
[2018-07-15 11:44] LABS: ALANINE AMINOTRANSFERASE 61 IU/L (0-55); ALBUMIN 3.5 g/dL (3.5-5.0); ALBUMIN/GLOBULIN RATIO 0.9 (0.8-2.0); ALKALINE PHOSPHATASE 69 IU/L (40-150); AMYLASE 74 U/L (25-125); ANION GAP 12.4 mmol/L (8-16); BLOOD UREA NITROGEN 12 mg/dL (7-26); BUN/CREATININE RATIO 14 (6-25); CALCIUM 9.1 mg/dL (8.4-10.2); CARBON DIOXIDE 26 mmol/L (22-29); CHLORIDE 101 mmol/L (98-107); CREATINE KINASE 23 IU/L (30-200); CREATININE, SERUM 0.86 mg/dL (0.72-1.25); EST GLOMERULAR FILTRATION RATE > 60 ML/MIN (60-); GLUCOSE 117 mg/dL (74-118); LIPASE 63 U/L (8-78); MAGNESIUM 2.3 MG/DL (1.3-2.1); POTASSIUM 3.4 mmol/L (3.5-5.1); SODIUM 136 mmol/L (136-145)
[2018-07-15] MEDS ORDERED: ACETAMINOPHEN 325 MG TAB PO PRN (13:30)
[2018-07-15] MEDS ORDERED: ONDANSETRON HCL INJ 2 MG/ML VIAL IV PRN (13:30)
[2018-07-15 15:44] VITALS: BP 146/68
[2018-07-15] MEDS ORDERED: INFLUENZA VIRUS VAC SPLIT INJ 0.5 ML SYR IM NR (15:45)
[2018-07-15 16:03] VITALS: BP 146/68
[2018-07-15 20:18] VITALS: BP 127/60
[2018-07-15 21:58] LABS: CREATINE KINASE MB 0.6 ng/mL (0-5.0)
[2018-07-16] VITALS (7 sets, daily range): BP systolic 118–130; BP diastolic 59–65
[2018-07-16 04:49] LABS: BASOPHILS % 0.2 % (0.0-1.0); EOSINOPHILS # (AUTO) 0.1 (0.0-0.4); HEMOGLOBIN 11.1 g/dL (14.0-18.0); LYMPHOCYTES # (AUTO) 0.9 (1.0-3.2); LYMPHOCYTES % 17.7 % (18.0-39.1); MEAN CORPUSCULAR HEMOGLOBIN 31.1 pg (28-32); MEAN CORPUSCULAR HGB CONC 34.7 g/dL (31-35); MEAN CORPUSCULAR VOLUME 89.6 fL (81-99); MONOCYTES # (AUTO) 0.5 (0.2-0.8); MONOCYTES % 9.6 % (4.4-11.3); NEUTROPHILS # (AUTO) 3.7 (2.1-6.9); NEUTROPHILS % 70.3 % (38.7-80.0); PLATELET COUNT 198 x10e3/uL (140-360); RED BLOOD COUNT 3.57 x10e6/uL (4.3-5.7)
[2018-07-16 05:13] LABS: CREATINE KINASE MB 0.6 ng/mL (0-5.0)
[2018-07-16 05:55] LABS: ALANINE AMINOTRANSFERASE 43 IU/L (0-55); ALBUMIN 2.9 g/dL (3.5-5.0); ALBUMIN/GLOBULIN RATIO 0.8 (0.8-2.0); ALKALINE PHOSPHATASE 63 IU/L (40-150); ANION GAP 10.6 mmol/L (8-16); BLOOD UREA NITROGEN 8 mg/dL (7-26); BUN/CREATININE RATIO 11 (6-25); CALCIUM 8.5 mg/dL (8.4-10.2); CARBON DIOXIDE 24 mmol/L (22-29); CHLORIDE 103 mmol/L (98-107); CHOL/HDL RATIO 2.6 (3.9-4.7); CHOLESTEROL 102 MD/DL (0-199); CREATININE, SERUM 0.71 mg/dL (0.72-1.25); EST GLOMERULAR FILTRATION RATE > 60 ML/MIN (60-); GLUCOSE 109 mg/dL (74-118); HDL CHOLESTEROL 39 MG/DL (40-60); LDL CHOLESTEROL 50 MG/DL (60-130); POTASSIUM 3.6 mmol/L (3.5-5.1); SODIUM 134 mmol/L (136-145); TRIGLYCERIDES 64 MG/DL (0-149)
[2018-07-16] MEDS ORDERED: ASPIRIN 81 MG ENTERIC COATED PO SCH (09:00)
--- NOTE | 2018-07-16 11:58 | Diagnostic Imaging Report ---
EXAMINATION: MRI of the brain without contrast. HISTORY: Near syncope COMPARISON: Head CT on 07/15/18 TECHNIQUE: Sagittal T2; axial DWI, T2, FLAIR, T1-IR, T2 gradient echo; coronal FLAIR. IMAGE QUALITY: Adequate. FINDINGS: Parenchyma: 1. Few scattered white matter T2 hyperintense foci, most likely nonspecific chronic microvascular ischemic changes, unchanged from head CT on 07/15/2018. 2. No mass, hemorrhage, acute or chronic infarcts. Skull: Unremarkable. Vessels: Expected flow voids present in the major arteries and dural sinuses. Extra-axial spaces: No abnormal signal intensity or mass effect. Brain volume: Moderate generalized brain volume loss without disproportionate lobar atrophy. Ventricles: No hydrocephalus or displacement. Foramen magnum: Unremarkable. Sella: Unremarkable. Paranasal / mastoid sinuses: No significant inflammatory disease. IMPRESSION: 1. No acute infarcts. 2. Mild chronic microvascular ischemic changes is again noted. 3. Moderate generalized brain volume loss. Signed by: Dr. Nataliya Banegas M.D. on 07/16/2018 11:55 AM
[2018-07-16] MEDS ORDERED: NON-FORMULARY MEDICATION (Cetirizine Hcl 10 MG) PO PRN (15:30)
[2018-07-16] MEDS ORDERED: LORATADINE 10 MG TAB PO PRN (16:30)
[2018-07-17 00:01] VITALS: BP 121/62
[2018-07-17 04:00] VITALS: BP 140/70
[2018-07-17 07:26] VITALS: BP 142/65
[2018-07-17 08:50] VITALS: BP 142/65
[2018-07-17] MEDS ORDERED: OMEGA 3 POLYUNSAT FATTY ACIDS 1000 MG SOFTGEL PO SCH (09:00)
[2018-07-17] MEDS ORDERED: TAMSULOSIN HCL 0.4 MG CAP PO SCH (09:00)
[2018-07-17] MEDS ORDERED: LISINOPRIL 10 MG TAB PO SCH (09:00)
[2018-07-17] MEDS ORDERED: OMEGA FISH OIL PO SCH (09:00)
[2018-07-17] MEDS ORDERED: CHOLECALCIFEROL 1,000 UNIT TAB PO SCH (09:00)
[2018-07-17] MEDS ORDERED: LORATADINE 10 MG TAB PO SCH (09:00)
[2018-07-17] MEDS ORDERED: NON-FORMULARY MEDICATION ([Vitamin D] 2,000 UNITS) PO SCH (09:00)
[2018-07-17 11:27] VITALS: BP 142/65
--- NOTE | 2018-07-18 15:05 | Consultation ---
DATE OF CONSULTATION: July 18, 2018 CARDIOLOGY CONSULTATION REASON FOR CONSULTATION: Near syncope. HISTORY OF PRESENT ILLNESS: This is a 73-year-old man who has a history of hypertension and hyperlipidemia and a recent hospitalization for viral pneumonia who presented to the emergency department with dizziness and lightheadedness. The patient states that he felt lightheaded associated with some abdominal pain. He denies any syncope or paula loss of consciousness. He denies any chest pain, palpitations or shortness of breath. After having a bowel movement, the patient states that he felt better. We were consulted for possible cardiovascular causes for his symptoms. He denies any seizure-like activity. Again, he denies any palpitations or chest pain related to his event. REVIEW OF SYSTEMS: A 12-point review of systems was conducted and was negative except as above in the HPI. PAST MEDICAL HISTORY: Hypertension, hyperlipidemia, prior history of viral pneumonia. PAST SURGICAL HISTORY: Cholecystectomy, prostate surgery. FAMILY HISTORY: No premature coronary artery disease or sudden cardiac . SOCIAL HISTORY: No illicit drug use, alcohol use or tobacco use. ALLERGIES: NO KNOWN DRUG ALLERGIES. MEDICATIONS: See medication reconciliation form. PHYSICAL EXAMINATION VITALS: Temperature 97.1, heart rate 62, respirations 18, blood pressure 142/65, oxygen saturation 98% on room air. GENERAL: He is a well-appearing, well-built, man lying comfortably in bed. Alert and oriented times 3. HEAD: Normocephalic and atraumatic. EYES: The extraocular movements are intact. Conjunctivae are clear. NECK: No JVD. No bruits. CARDIOVASCULAR: Regular rate and rhythm. No murmurs, rubs or gallops. LUNGS: Clear to auscultation bilaterally. No wheezing. No rales. ABDOMEN: Soft, nontender and nondistended. EXTREMITIES: No clubbing, cyanosis or edema. VASCULAR: 2+ pulses. SKIN: Warm, dry and intact. NEUROLOGIC: No focal deficits noted. Cranial nerves are grossly intact. PSYCHIATRIC: Normal mood and affect. LABORATORY DATA: Reviewed and shows white blood cell count 5.2, hemoglobin 11.1, platelets 198. Creatinine is 0.71. Sodium 134, potassium 3.6. Cardiac enzymes are negative times 3. BNP is 30. A 2-D echocardiogram from June of this year shows normal left ventricular size and function with an estimated ejection fraction of 55% to 60% with no valvular abnormalities. Telemetry monitoring revealed normal sinus rhythm. A 12-lead electrocardiogram showed normal sinus rhythm. IMPRESSION AND RECOMMENDATIONS 1. Dizziness and giddiness. The patient has near syncopal symptoms likely related to his prior acute viral illness with recovery and/or some type of gastrointestinal problem. The patient states his symptoms completely resolved after having a bowel movement. He denies any cardiac symptoms or neurologic symptoms. He has a normal 12-lead electrocardiogram, telemetry monitoring and echocardiogram. His carotid Doppler study showed no obstructive disease, however final read is pending. His MRI of the brain showed no acute infarcts. Chest x-ray showed no acute cardiopulmonary abnormality. He has no signs of acute coronary syndrome as his 12-lead electrocardiogram shows no active ischemia or injury and his cardiac enzymes are within normal limits. Continue to encourage oral hydration and treatment per primary team. 2. Hypertension. The patient's blood pressure is well controlled on current antihypertensive regimen. Continue home medications. 3. Hyperlipidemia. Continue fish oil and aspirin. Thank you for the consultation. The patient may be discharged from a cardiovascular standpoint with outpatient followup. LULÚ HAY D.O. Job#: [id number]
--- NOTE | 2018-09-08 02:37 | Discharge Summary ---
CHIEF COMPLAINT: Near syncope. FINAL DIAGNOSES 1. Near syncope. 2. Hypertension. 3. Benign prostatic hypertrophy. DISPOSITION: Home. HOSPITAL COURSE: A 73-year-old male with known history of hyperlipidemia, benign prostatic hypertrophy, presents to the ER following a sudden onset of having diaphoresis and dizziness on having breakfast with the family. Denies passing out. Claims that the episode lasted less than 1 minute. No other complaints. Underwent extensive review and evaluation in the emergency room and the patient was admitted to the facility for evaluation of the near syncope event. Etiology uncertain, questionable vasovagal, hyperlipidemia, and benign prostatic hypotrophy. We will be admitting for observation. We will continue home medications. The patient was in [facility]; while here in the facility, was on a cardiac diet. At that location, he was resting comfortably. He was asymptomatic. Receiving acetaminophen and aspirin. He did receive a flu vaccine during his hospitalization. Laboratory studies are showing stable electrolytes, kidney functions stable, glucose 109. CBC stable. It was reviewed by Dr. Madrigal, cardiology, for possible causes of the event. He stated that the near syncope event resolved. There was no chest pain, shortness of breath, or palpitations. The patient is cleared for discharge per cardiology. Patient's labs remain stable and he was able to be released to home on July 17, 2018 in stable condition. EKG just showing a poor quality interpretation. Normal sinus rhythm. Carotid studies were showing evidence of carotid disease without significant carotid stenosis bilaterally. CT of the chest was carried out with findings suggesting pulmonary edema with possible superimposed viral infection. There was also evidence of mediastinal and bilateral hilar lymphadenopathy, may be reactive, but recommendation is to follow the CT in 6 to 8 weeks. Also, there is findings of some mild cardiomegaly. As mentioned, the patient was cleared for discharge by cardiology, stabilized, and was released home. DISCHARGE INSTRUCTIONS: With the discharge, patient will continue on his current medications. No equipment or supplies necessary. No drains or Foleys needed. Will be maintained on a cardiac diet. FOLLOWUP CARE: Noted that he has a non-documented PCP on his demographic sheet. He was told he may follow up with me in my office within 2 to 3 weeks or report back to the emergency room if the patient has any further recurrence of these similar syncope events. Dictated By: HENRRY Whelan Job#: [id number] LEE ANN
== END 2018-07-17 12:42 | disposition home or self-care (01) ==
LOC: ER 09:56 → ERHOLD 13:28 → MED/SURG 14:39 → IMCU 07-16 09:20
DX: R55 Syncope and collapse (principal); E78.5 Hyperlipidemia, unspecified; N40.0 Benign prostatic hyperplasia without lower urinary tract symptoms; Z82.49 Family history of ischemic heart disease and other diseases of the circulatory system
CPT/HCPCS: 36415 ×2; 70450; 70551; 71046; 80053 ×2; 80061; 81001; 82150; 82550 ×2; 82553 ×2; 83690; 83735; 83880; 84484 ×2; 85025 ×2; 85610; 85730; 87086; 93005; 93880; 99284; G0378 ×3

== ENCOUNTER 2018-08-02 11:25 | Inpatient (IN) | payer MEDICARE ==
[~2018-08-02] VITALS: Ht 172.7 cm; Wt 78.0 kg
[2018-08-02] MEDS: IPRATROPIUM BROMIDE 0.02% 2.5 ML NEB NEB SCH ×3 (01:28→19:58)
[2018-08-02] MEDS ORDERED: IPRATROPIUM BROMIDE 0.02% 2.5 ML NEB NEB STA (11:29)
[2018-08-02] MEDS ORDERED: SODIUM CHLORIDE 0.9% 1000ML 1,000 ML IV STA (11:29)
[2018-08-02] MEDS ORDERED: ALBUTEROL SULF 0.083% NEB SOLN 3 ML NEB NEB STA (11:29)
[2018-08-02] MEDS ORDERED: CEFTRIAXONE SOD 1 GM VIAL IV ONE (11:50)
[2018-08-02 12:10] LABS: BASOPHILS % 0.3 % (0.0-1.0); EOSINOPHILS % 0.9 % (0.0-6.0); HEMOGLOBIN 12.7 g/dL (14.0-18.0); LYMPHOCYTES # (AUTO) 0.3 (1.0-3.2); LYMPHOCYTES % 8.5 % (18.0-39.1); MEAN CORPUSCULAR HEMOGLOBIN 30.5 pg (28-32); MEAN CORPUSCULAR HGB CONC 34.3 g/dL (31-35); MEAN CORPUSCULAR VOLUME 88.7 fL (81-99); MONOCYTES # (AUTO) 0.3 (0.2-0.8); MONOCYTES % 7.4 % (4.4-11.3); NEUTROPHILS # (AUTO) 2.9 (2.1-6.9); PLATELET COUNT 227 x10e3/uL (140-360); RED BLOOD COUNT 4.17 x10e6/uL (4.3-5.7); RED CELL DISTRIBUTION WIDTH 13.4 % (11.7-14.4)
[2018-08-02] MEDS ORDERED: ACETAMINOPHEN 1000 MG/100 ML IV ONE ×2 (12:10→18:00)
[2018-08-02 12:17] LABS: INR 1.05; PROTHROMBIN TIME 14.7 seconds (11.9-14.5)
[2018-08-02 12:18] LABS: PARTIAL THROMBOPLASTIN TIME 33.1 seconds (23.8-35.5)
[2018-08-02 12:26] LABS: ALANINE AMINOTRANSFERASE 14 IU/L (0-55); ALBUMIN 3.6 g/dL (3.5-5.0); ALBUMIN/GLOBULIN RATIO 0.8 (0.8-2.0); ALKALINE PHOSPHATASE 82 IU/L (40-150); ANION GAP 12.8 mmol/L (8-16); BLOOD UREA NITROGEN 10 mg/dL (7-26); BUN/CREATININE RATIO 10 (6-25); CALCIUM 9.3 mg/dL (8.4-10.2); CARBON DIOXIDE 26 mmol/L (22-29); CHLORIDE 98 mmol/L (98-107); CREATINE KINASE 49 IU/L (30-200); CREATININE, SERUM 1.01 mg/dL (0.72-1.25); EST GLOMERULAR FILTRATION RATE > 60 ML/MIN (60-); GLUCOSE 134 mg/dL (74-118); LIPASE 19 U/L (8-78); MAGNESIUM 2.3 MG/DL (1.3-2.1); POTASSIUM 3.8 mmol/L (3.5-5.1); SODIUM 133 mmol/L (136-145)
[2018-08-02 12:46] LABS: THYROID STIMULATING HORMONE 2.073 uIU/mL (0.350-4.940)
[2018-08-02 12:48] LABS: PLATELET ESTIMATE ADEQUATE; PLATELET MORPHOLOGY COMMENT NORMAL; RBC MORPHOLOGY COMMENT NORMAL
[2018-08-02 12:49] LABS: CLARITY,URINE CLEAR (CLEAR); COLOR,URINE YELLOW (YELLOW)
[2018-08-02 12:50] LABS: BILIRUBIN,URINE NEGATIVE (NEGATIVE); KETONES,URINE NEGATIVE (NEGATIVE); LEUKOCYTE ESTERASE ,URINE NEGATIVE (NEGATIVE); NITRITE,URINE NEGATIVE (NEGATIVE); PROTEIN,URINE DIPSTICK TRACE (NEGATIVE); URINE UROBILINOGEN 0.2 mg/dL (0.2 - 1)
[2018-08-02 12:50] LABS: B-TYPE NATRIURETIC PEPTIDE2 40.5 pg/mL (0-100)
[2018-08-02 12:55] LABS: BACTERIA,URINE FEW /HPF; EPITHELIAL CELLS,URINE RARE /LPF; RBC,URINE 21-50 /HPF (0-5); WBC,URINE (MAN) 0-5 /HPF (0-5)
[2018-08-02] MEDS ORDERED: ONDANSETRON HCL INJ 2 MG/ML VIAL IV PRN (14:00)
[2018-08-02] MEDS ORDERED: DIPHENHYDRAMINE HCL INJ 50 MG/ML VIAL IV PRN (14:00)
[2018-08-02] MEDS ORDERED: IBUPROFEN 400 MG TAB PO PRN (14:00)
[2018-08-02] MEDS ORDERED: ZOLPIDEM TARTRATE 5 MG TAB PO PRN (14:00)
[2018-08-02] MEDS ORDERED: HYDROCODONE/APAP 7.5MG-325MG 1 EA TAB PO PRN (14:00)
[2018-08-02] MEDS ORDERED: ENALAPRILAT IV INJ 1.25 MG/ML VIAL IV PRN (14:00)
[2018-08-02] MEDS ORDERED: CLONIDINE HCL 0.1 MG TAB PO PRN (14:00)
--- NOTE | 2018-08-02 14:14 | Diagnostic Imaging Report ---
EXAMINATION: PA and lateral views of the chest. COMPARISON: Chest PA and lateral 07/15/2018 CLINICAL HISTORY: Cough and chills DISCUSSION: Lines/tubes: None. Lungs: The lungs are well inflated and grossly clear. There is no evidence of pneumonia or pulmonary edema. Pleura: There is no pleural effusion or pneumothorax. Heart and mediastinum: Cardiomediastinal silhouette is unremarkable. Pulmonary vasculature is normal. Mildly tortuous aorta. Bones and soft tissues: No acute bony abnormalities. Degenerative changes in the thoracic spine IMPRESSION: No acute cardiopulmonary abnormalities. Signed by: Dr. Lui William M.D. on 08/02/2018 2:11 PM
[2018-08-02] MEDS ORDERED: LORATADINE 10 MG TAB PO PRN (14:30)
[2018-08-02] MEDS ORDERED: GUAIFENESIN/CODEINE 10 ML CUP PO PRN (14:30)
[2018-08-02] MEDS ORDERED: IOPAMIDOL 370 MG/ML 200 ML INFUS..BTL INJ ONE (14:59)
[2018-08-02 15:00] VITALS: BP 86/49
[2018-08-02] MEDS ORDERED: SODIUM CHLORIDE 0.9% 50ML 50 ML ONE (15:00)
--- NOTE | 2018-08-02 15:30 | Diagnostic Imaging Report ---
EXAMINATION: CT scan of the chest with contrast. TECHNIQUE: Spiral CT images of the chest were performed from the lung apices to the level of the adrenal glands after the intravenous administration of 100 cc of Isovue 370. Coronal and sagittal reformatted images were obtained. COMPARISON: Chest 2 views 08/02/2018, CT chest 11 07/05/2018 CLINICAL HISTORY:Pneumonia DISCUSSION: Exam limited as images were acquired during partial expiratory phase. LINES/TUBES: None. LUNGS AND AIRWAYS: Mildly increased attenuation of the pulmonary parenchyma, secondary to scan obtained during partial expiratory phase. Stable 4-5 mm pulmonary nodule in the right right upper lobe (series 3, image 32). No other pulmonary nodules. Stable linear opacity in the lateral right middle lobe, consistent with scarring (series 3, image 63). No significant interval change in bilateral central peribronchial wall thickening . No consolidation. Mild bilateral lower lobe dependent atelectasis. Persistent mild narrowing of the proximal right upper lobe pulmonary bronchus (series 3, image 45). Major airways show no endobronchial lesions. PLEURA: No pneumothorax or pleural effusions. HEART AND MEDIASTINUM: The thyroid gland is normal. Mild cardiomegaly. Upper cardial effusion. Aorta is nonaneurysmal. LYMPH NODES: Stable enlarged right lower paratracheal lymph node measuring 1.5 cm in short axis (series 2, image 41 and coronal images 70 and 71), which contains punctate central calcifications. Stable mildly enlarged subcarinal lymph node which measures 1.4 cm in short axis (series 2, image 53). Stable enlarged right hilar lymph node which measures 1.5 cm in short axis (coronal image 74). Mildly enlarged right hilar lymph node, which measures 1.0 cm in short axis (series 2, image 61 and sagittal image 55). No hilar adenopathy. No supraclavicular adenopathy. ABDOMEN: Limited contrast-enhanced views of the upper abdomen show stable 1.4 cm simple cyst in hepatic segment V (series 2, image 105). Mild splenomegaly, which measures 12.8 cm in AP diameter. Visualized pancreas and adrenal glands are unremarkable. 3.0 x 1.8 cm right interpolar and 2.1 x 2.1 cm right superior pole fluid density lesions, likely representing simple cysts. Subcentimeter bilateral hypodensities are too small to characterize but likely represent other simple cysts. Crescentic soft tissue density adjacent to the posterior aspect of the right hepatic lobe segment which contains dystrophic calcifications. BONES AND SOFT TISSUES: No aggressive lytic lesions. Degenerative disc changes in the thoracic spine. IMPRESSION: 1. Exam limited as it was acquired during partial expiratory phase (patient unable to breath-hold) 2. No consolidation. Mild bilateral lower lobe dependent atelectasis. 3. Stable 4-5 mm pulmonary nodule in the right upper lobe. No other nodules are noted. 4. Stable mediastinal and hilar adenopathy. 5. Persistent mild narrowing of the proximal right upper lobe pulmonary bronchus, which may relate to mild compression from adjacent enlarged hilar node or pulmonary artery. 6. Mild splenomegaly. 7. Crescentic soft tissue density adjacent to the posterior aspect of the right hepatic lobe segment which contains dystrophic calcifications. This may reflect sequela of prior infection or hematoma. Correlate for surgery or trauma in this area Signed by: Dr. Lui William M.D. on 08/02/2018 3:27 PM
[2018-08-02] MEDS: SODIUM CHLORIDE 0.9% 1000ML 1,000 ML IV SCH (16:00)
[2018-08-02] MEDS: FAMOTIDINE 20 MG TAB PO SCH (16:30)
[2018-08-02] MEDS: AZITHROMYCIN 500MG/NS 250 ML 250 ML IV SCH (16:30)
[2018-08-02 16:44] LABS: CREATINE KINASE MB 0.9 ng/mL (0-5.0)
[2018-08-02] MEDS: ENOXAPARIN SOD INJ 40 MG/0.4 ML SYR SC SCH (17:26)
--- NOTE | 2018-08-02 18:26 | History and Physical ---
CHIEF COMPLAINT: Cough. HISTORY OF PRESENT ILLNESS: The patient is a 73-year-old man. He has a history of hypertension and hyperlipidemia. He reports intermittent cough for 2-1/2 months. He also reports some fever this morning. Cough is unchanged with eating. He does not report any heartburn or indigestion. He denies any postnasal drainage. He denies any wheezing or dyspnea. The patient required hospitalization in July for dizziness. He was evaluated by cardiology at that time. An echocardiogram was normal. Telemetry was normal. Carotid duplex studies showed no significant disease. He also had an MRI of the brain that was normal. PAST SURGICAL HISTORY 1. Status post cholecystectomy. 2. History of prostate surgery. PAST MEDICAL HISTORY 1. Hypertension. 2. Hyperlipidemia. SOCIAL HISTORY: The patient has never been a smoker. He is not a drinker. He lives in [place]. He is here with his family. ALLERGIES: THERE ARE NO KNOWN DRUG ALLERGIES. REVIEW OF SYSTEMS: He did note some chills this morning. He does not complain of headache. He denies any sinus congestion or postnasal drainage. He is not having any neck pain. He denies any chest pain. He does note some cough, but no dyspnea or wheezing. He has no abdominal pain. There is no heartburn or indigestion. He has no nausea or vomiting. He does not have any leg edema. He denies any focal neurological complaints. PHYSICAL EXAMINATION VITAL SIGNS: The patient is afebrile. The blood pressure is 114/58 and respiratory rate is 17. The pulse is 63 and the saturation is 100%. HEENT: Shows no facial swelling or erythema. The nasal mucosa is normal. The oropharynx is normal. LYMPHATIC: Shows no submandibular, cervical, or supraclavicular adenopathy. NECK: Shows no JVD or thyromegaly. There is no nuchal rigidity. CARDIOVASCULAR: Reveals a regular rate and rhythm with a normal S1 and S2. LUNGS: Auscultation of lungs shows clear breath sounds bilaterally. There is no wheezing. ABDOMEN: Soft and nontender. There is no rebound or guarding. EXTREMITIES: Shows no leg edema or calf tenderness. There is no cyanosis or clubbing. SKIN: Shows no rashes. NEUROLOGIC: Shows no focal abnormalities. IMPRESSION 1. Cough and fever. 2. Mediastinal adenopathy on chest CT from May. 3. Intermittent pancytopenia since May. 4. Hyponatremia. 5. Prostatic hypertrophy. PLAN 1. IV antibiotics with appropriate cultures. 2. Swallowing evaluation to rule out recurrent aspiration pneumonitis. 3. Repeat CT scan of the chest with contrast. 4. Pertussis serologies. 5. Repeat blood counts in the morning. 6. Cough syrup as needed for symptomatic relief. Job#: [id number] SUB
[2018-08-02] MEDS: ALBUTEROL SULF 0.083% NEB SOLN 3 ML NEB NEB SCH (19:58)
[2018-08-02 20:00] VITALS: BP 121/67
[2018-08-02] MEDS: CEFTRIAXONE SOD 1 GM VIAL IV SCH (23:42)
[2018-08-03] VITALS (9 sets, daily range): BP systolic 108–149; BP diastolic 56–72
[2018-08-03] MEDS: ACETAMINOPHEN 325 MG TAB PO PRN ×3 (00:21→17:00)
[2018-08-03] MEDS: SODIUM CHLORIDE 0.9% 1000ML 1,000 ML IV SCH (03:52)
[2018-08-03 05:32] LABS: BASOPHILS % 0.5 % (0.0-1.0); EOSINOPHILS % 0.5 % (0.0-6.0); HEMATOCRIT 30.5 % (38.2-49.6); HEMOGLOBIN 10.6 g/dL (14.0-18.0); LYMPHOCYTES # (AUTO) 0.4 (1.0-3.2); MEAN CORPUSCULAR HEMOGLOBIN 31.2 pg (28-32); MEAN CORPUSCULAR HGB CONC 34.8 g/dL (31-35); MEAN CORPUSCULAR VOLUME 89.7 fL (81-99); MONOCYTES # (AUTO) 0.2 (0.2-0.8); MONOCYTES % 9.1 % (4.4-11.3); NEUTROPHILS # (AUTO) 1.2 (2.1-6.9); NEUTROPHILS % 65.8 % (38.7-80.0); PLATELET COUNT 276 x10e3/uL (140-360); RED CELL DISTRIBUTION WIDTH 13.6 % (11.7-14.4)
[2018-08-03 05:57] LABS: ALANINE AMINOTRANSFERASE 14 IU/L (0-55); ALBUMIN 2.9 g/dL (3.5-5.0); ALBUMIN/GLOBULIN RATIO 0.8 (0.8-2.0); ALKALINE PHOSPHATASE 66 IU/L (40-150); ANION GAP 11.7 mmol/L (8-16); BLOOD UREA NITROGEN 9 mg/dL (7-26); BUN/CREATININE RATIO 10 (6-25); CALCIUM 8.3 mg/dL (8.4-10.2); CARBON DIOXIDE 24 mmol/L (22-29); CHLORIDE 101 mmol/L (98-107); CREATININE, SERUM 0.86 mg/dL (0.72-1.25); EST GLOMERULAR FILTRATION RATE > 60 ML/MIN (60-); GLUCOSE 99 mg/dL (74-118); POTASSIUM 3.7 mmol/L (3.5-5.1); SODIUM 133 mmol/L (136-145)
[2018-08-03] MEDS ORDERED: SODIUM CHLORIDE 0.9% 50ML 0 ML ONE (06:18)
[2018-08-03] MEDS ORDERED: IOPAMIDOL 370 MG/ML 200 ML INFUS..BTL INJ ONE (06:18)
[2018-08-03 06:56] LABS: CREATINE KINASE MB 1.2 ng/mL (0-5.0)
[2018-08-03] MEDS: IPRATROPIUM BROMIDE 0.02% 2.5 ML NEB NEB SCH ×5 (07:10→22:00)
[2018-08-03] MEDS: ALBUTEROL SULF 0.083% NEB SOLN 3 ML NEB NEB SCH ×3 (07:10→19:25)
[2018-08-03] MEDS: LISINOPRIL 10 MG TAB PO SCH (09:04)
[2018-08-03] MEDS: FAMOTIDINE 20 MG TAB PO SCH ×2 (09:04→17:07)
[2018-08-03 09:36] LABS: LYMPHOCYTES % (MANUAL) 25 % (19-48); MONOCYTES % (MANUAL) 9 % (3.4-9.0); NEUTROPHILS % (MANUAL) 66 % (40-74); PLATELET ESTIMATE ADEQUATE; PLATELET MORPHOLOGY COMMENT NORMAL; RBC MORPHOLOGY COMMENT NORMAL
[2018-08-03] MEDS: CEFTRIAXONE SOD 1 GM VIAL IV SCH ×2 (12:16→23:12)
--- NOTE | 2018-08-03 14:30 | Diagnostic Imaging Report ---
Exam: Modified barium swallow dated 08/03/2018 History: Pneumonia Comparison: None available Findings: Procedure was done in conjunction with speech pathologist. The radiologist was in attendance. Fluoroscopic evaluation of the swallowing mechanism was performed with different consistency substances offered by mouth. There is no evidence of aspiration or penetration. Minimal amount of contrast retained within a tiny Zenker's diverticulum is noted (this is noted only on the final image of the first fluoroscopic evaluation with thin barium). Fluoroscopy time: 0.6 minutes Total dose: 5.10 mGy Impression: 1. 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 2. No aspiration or penetration. 3. Please see the full report provided by the speech pathologist. Signed by: Dr. Wilian Granados DO on 08/03/2018 2:27 PM
[2018-08-03] MEDS: AZITHROMYCIN 500MG/NS 250 ML 250 ML IV SCH (14:36)
--- NOTE | 2018-08-03 14:57 | Progress Note ---
DATE: PULMONARY/CRITICAL CARE PROGRESS NOTE SUBJECTIVE: The patient reports less cough, but he still has some cough. He went for a modified barium swallow today, but the results are still pending. He has no fever. He does not complain of chest pain. OBJECTIVE: VITAL SIGNS: Are stable. HEENT: Shows no facial swelling or erythema. The nasal mucosa is normal. The oropharynx is normal. LYMPHATIC: Shows no submandibular, cervical or supraclavicular adenopathy. CARDIAC: Reveals a regular rate and rhythm with a normal S1 and S2. LUNGS: Auscultation reveals clear breath sounds bilaterally. There is no wheezing. ABDOMEN: Is soft and nontender. There is no rebound or guarding. EXTREMITIES: Show no leg edema or calf tenderness. IMPRESSION: 1. Leukopenia. 2. Persistent mediastinal adenopathy. 3. Persistent cough. 4. Hypertension. PLAN: 1. Hematology consultation. 2. Continue antibiotics and cough suppressants. 3. Patient will require a biopsy of the mediastinal adenopathy either through IVUS or a mediastinoscopy. Job#: [id number] EV STAR
[2018-08-03] MEDS: ENOXAPARIN SOD INJ 40 MG/0.4 ML SYR SC SCH (17:00)
[2018-08-03 17:17] LABS: HIV 1&2 AB SCREEN NON-REACTIVE (NONREACTIVE)
[2018-08-03] MEDS: TAMSULOSIN HCL 0.4 MG CAP PO SCH (21:29)
[2018-08-04] VITALS (8 sets, daily range): BP systolic 120–157; BP diastolic 55–70
[2018-08-04] MEDS: ACETAMINOPHEN 325 MG TAB PO PRN ×3 (01:20→20:24)
[2018-08-04 05:35] LABS: BASOPHILS % 0.4 % (0.0-1.0); HEMATOCRIT 31.1 % (38.2-49.6); HEMOGLOBIN 10.6 g/dL (14.0-18.0); LYMPHOCYTES # (AUTO) 0.3 (1.0-3.2); LYMPHOCYTES % 14.5 % (18.0-39.1); MEAN CORPUSCULAR HEMOGLOBIN 30.2 pg (28-32); MEAN CORPUSCULAR HGB CONC 34.1 g/dL (31-35); MEAN CORPUSCULAR VOLUME 88.6 fL (81-99); MONOCYTES # (AUTO) 0.2 (0.2-0.8); MONOCYTES % 7.9 % (4.4-11.3); NEUTROPHILS # (AUTO) 1.7 (2.1-6.9); PLATELET COUNT 188 x10e3/uL (140-360); RED BLOOD COUNT 3.51 x10e6/uL (4.3-5.7); RED CELL DISTRIBUTION WIDTH 13.4 % (11.7-14.4)
[2018-08-04 05:53] LABS: ALANINE AMINOTRANSFERASE 13 IU/L (0-55); ALBUMIN 2.9 g/dL (3.5-5.0); ALBUMIN/GLOBULIN RATIO 0.8 (0.8-2.0); ALKALINE PHOSPHATASE 62 IU/L (40-150); ANION GAP 10.9 mmol/L (8-16); BLOOD UREA NITROGEN 8 mg/dL (7-26); BUN/CREATININE RATIO 9 (6-25); CALCIUM 8.3 mg/dL (8.4-10.2); CARBON DIOXIDE 26 mmol/L (22-29); CHLORIDE 99 mmol/L (98-107); CREATININE, SERUM 0.86 mg/dL (0.72-1.25); EST GLOMERULAR FILTRATION RATE > 60 ML/MIN (60-); GLUCOSE 108 mg/dL (74-118); POTASSIUM 3.9 mmol/L (3.5-5.1); SODIUM 132 mmol/L (136-145)
[2018-08-04 06:51] LABS: BAND NEUTROPHILS % (MANUAL) 3 %; EOSINOPHILS % (MANUAL) 1 % (0-7); LYMPHOCYTES % (MANUAL) 19 % (19-48); MONOCYTES % (MANUAL) 9 % (3.4-9.0); NEUTROPHILS % (MANUAL) 67 % (40-74); PLATELET ESTIMATE ADEQUATE; PLATELET MORPHOLOGY COMMENT NORMAL; RBC MORPHOLOGY COMMENT NORMAL
[2018-08-04] MEDS: IPRATROPIUM BROMIDE 0.02% 2.5 ML NEB NEB SCH ×5 (07:20→22:00)
[2018-08-04] MEDS: ALBUTEROL SULF 0.083% NEB SOLN 3 ML NEB NEB SCH ×3 (07:20→19:34)
[2018-08-04] MEDS: FAMOTIDINE 20 MG TAB PO SCH ×2 (09:23→16:45)
[2018-08-04] MEDS: LISINOPRIL 10 MG TAB PO SCH (09:23)
[2018-08-04] MEDS: CEFTRIAXONE SOD 1 GM VIAL IV SCH (11:50)
[2018-08-04] MEDS: AZITHROMYCIN 500MG/NS 250 ML 250 ML IV SCH (14:37)
[2018-08-04] MEDS ORDERED: DOXYCYCLINE HYCLATE 100 MG in SODIUM CHLORIDE 0.9% 100 ML 100 ML IV ONE (16:30)
[2018-08-04] MEDS ORDERED: SODIUM CHLORIDE 0.9% IV ONE (17:00)
[2018-08-04] MEDS ORDERED: DOXYCYCLINE HYCLATE IV ONE (17:00)
[2018-08-04] MEDS: ENOXAPARIN SOD INJ 40 MG/0.4 ML SYR SC SCH (17:00)
--- NOTE | 2018-08-04 18:48 | Consultation ---
DATE OF CONSULTATION: August 04, 2018 INFECTIOUS DISEASE CONSULTATION ATTENDING PHYSICIAN: Dr. Vikash Yeboah. REASON FOR CONSULTATION: Fever and leukopenia. Thank you, Dr. Yeboah for asking me to see this patient. HISTORY: The patient is a 73-year-old man referred for fever and leukopenia. He presented to the emergency department with recurrent fever, cough and phlegm associated with night sweats and a 30-pound weight loss over 4 months. He had been admitted on 2 prior occasions in the last 5 months with similar symptoms. He denies chest pain, shortness of breath, nausea, vomiting, diarrhea, abdominal pain, and dysuria. He has a dog, which is healthy and he is unsure if the dog has fleas or ticks. He immigrated to the [facility] in the 1970s from [place] and travels for few days frequently. His last visit to [place] was about 4 months ago for weekend. Since immigrating to the [facility], he does not recall spending more than a week in [place]. He denies known TB exposure or sick contact. In the emergency department, he was noted to have temperature of 101.9 degrees Fahrenheit, pulse 68, respiratory rate 20, blood pressure 160/69, and oxygen saturation 99% on room air. Initial laboratory studies showed blood leukocyte count of 3500 with 82% neutrophils, BUN 10, and creatinine 1.01. Chest x-ray showed no acute abnormality. PAST MEDICAL HISTORY: Hypertension, hyperlipidemia, pulmonary edema, and benign prostatic hyperplasia. PAST SURGICAL HISTORY: Cholecystectomy and TURP. ALLERGIES: NO KNOWN DRUG ALLERGIES. MEDICATIONS: See MAR. The current antibiotics are ceftriaxone 1 g IV piggyback q.12 hours and azithromycin 500 mg IV piggyback q.24 hours. IMMUNIZATION: Unable to verify influenza vaccination status at this time. FAMILY HISTORY: One of his brothers has diabetes mellitus and another brother has benign prostatic hyperplasia. SOCIAL HISTORY: No alcohol or tobacco use. REVIEW OF SYSTEMS: As per history of present illness. He still has intermittent fever, cough, and sputum production. PHYSICAL EXAMINATION GENERAL: Acutely ill. VITAL SIGNS: T-max 102.4, pulse 83, respiratory rate 19, blood pressure 139/65, and weight 177 pounds. HEENT: Normocephalic. There is no icterus or injection of conjunctivae. There is no ear or nasal discharge. Moist oral mucosa. No pharyngeal erythema or exudate. NECK: Supple. No JVD or lymphadenopathy. LUNGS: Good air entry bilaterally. HEART: Normal S1 and S2. Regular. ABDOMEN: Soft and nontender. EXTREMITIES: There is no edema, clubbing or cyanosis. SKIN: There is no acute erythema. RADAR MECHANIC: Awake, alert, and oriented to person, place, and time. Nonfocal. LABORATORY AND DIAGNOSTICS: WBC 2280, up from 1870 (on August 03, 2018), hemoglobin 10.6, platelet 188,000, neutrophils 75, lymphs 14.5, monos 7.9, eosinophils 0, and basophils 0.4. BUN 8, creatinine 0.8, AST 19, ALT 13, alk phos 62, and total bilirubin 0.4. HIV screen is negative. Blood culture, no growth so far. Urine culture, also no growth. IMPRESSION 1. Fever of unknown origin. 2. ?Respiratory infection. 3. Benign prostatic hyperplasia. PLAN 1. Check respiratory virus PCR, echocardiogram, and CT scan of the abdomen and pelvis. 2. Switch antibiotics to doxycycline 200 mg IV loading, followed by 100 mg IV piggyback q.12 hours. Job#: [id number] ZACK GRAVES
--- NOTE | 2018-08-04 18:56 | Diagnostic Imaging Report ---
EXAMINATION: CT of the abdomen and pelvis with contrast. TECHNIQUE: Spiral CT images of the abdomen and pelvis were performed from the lung bases to the lesser trochanters after the intravenous administration of 100 cc of Isovue 370 and the oral administration of dilute Gastrografin. Coronal and sagittal reformatted images were obtained. COMPARISON: CT chest 08/02/2018 CLINICAL HISTORY:Fever DISCUSSION: ABDOMEN/PELVIS: LOWER THORAX:Trace right pleural effusion and associated mild compressive atelectasis of the right lower lobe. Mild cardiomegaly. Linear opacities in the right middle lobe, consistent with subsegmental atelectasis or scarring. HEPATOBILIARY: Stable 1.4 cm simple cyst in hepatic segment V. No intra or extrahepatic biliary ductal dilation. GALLBLADDER: Cholecystectomy clips. SPLEEN: Mild splenomegaly PANCREAS: No focal masses or ductal dilatation. ADRENALS: No adrenal nodules. KIDNEYS/URETERS: No hydronephrosis, stones, or solid mass lesions. Stable simple cysts in the right interpolar region and superior pole. PELVIC ORGANS/BLADDER: Bladder is unremarkable. Prostate is enlarged. PERITONEUM/RETROPERITONEUM: No free air or fluid. No well-defined fluid collections. Stable crescentic soft tissue density adjacent to the posterior aspect of the right hepatic lobe with dystrophic calcifications (series 2, image 19). LYMPH NODES: No intra-abdominal, retroperitoneal, pelvic or inguinal lymphadenopathy. VESSELS: The celiac trunk,superior and inferior mesenteric and bilateral renal arteries are patent The portal, superior mesenteric and splenic veins are patent. GI TRACT: No bowel dilation or evidence of obstruction. No pericolonic inflammatory changes. BONES AND SOFT TISSUE: No aggressive lytic lesions. Degenerative changes in the lower thoracic and lumbosacral spine. IMPRESSION: 1. No acute abdominopelvic abnormalities. No free fluid or well-defined fluid collections to suggest abscess. 2. Trace right pleural effusion and associated mild compressive atelectasis of the right lower lobe. 3. Findings adjacent to the posterior aspect of the right hepatic lobe may represent sequela of prior infection or hematoma. 4. Mild splenomegaly.. Signed by: Dr. Lui William M.D. on 08/04/2018 6:53 PM
[2018-08-04] MEDS ORDERED: IOPAMIDOL 370 MG/ML 200 ML INFUS..BTL INJ ONE (20:16)
[2018-08-04] MEDS ORDERED: SODIUM CHLORIDE 0.9% 50ML 50 ML ONE (20:16)
[2018-08-04] MEDS: TAMSULOSIN HCL 0.4 MG CAP PO SCH (20:24)
--- NOTE | 2018-08-04 23:32 | Consultation ---
DATE OF CONSULTATION: August 04, 2018 REQUESTING PHYSICIAN: Dr. Vikash Yeboah. SERVICE: Hematology/oncology. REASON FOR CONSULTATION: Evaluation and management of patient with leukopenia. HISTORY OF PRESENTING ILLNESS: Mr. Napoles is a very pleasant 73-year-old gentleman with known history of hypertension and hyperlipidemia, admitted through the hospital due to cough and fever. Patient had been started on IV antibiotics. Patient's initial blood work revealed leukopenia. Subsequently, hematology/oncology has been consulted to assist with the management. Of note, patient has been having recurrent infection and this is his third admission to the hospital. PAST MEDICAL HISTORY 1. Hypertension. 2. Hyperlipidemia. 3. Benign prostatic hypertrophy. 4. Leukopenia. PAST SURGICAL HISTORY 1. Cholecystectomy. 2. Transurethral resection of prostate. ALLERGIES: NO KNOWN DRUG ALLERGIES. CURRENT MEDICATIONS: Reviewed and as per electronic medical record. FAMILY HISTORY: Positive for diabetes mellitus and BPH. SOCIAL HISTORY: Denies history of alcohol use or illicit drug use. REVIEW OF SYSTEMS: A 14-point review of systems negative except as mentioned in history of presenting illness. PHYSICAL EXAMINATION VITAL SIGNS: Reviewed and as per electronic medical record. HEENT: PERRLA. Extraocular movements are intact. Head is atraumatic and normocephalic. NECK: Supple. CVS: S1, S2 audible. RESPIRATORY: Decreased bilateral air entry. ABDOMEN: Soft. Positive bowel sounds. EXTREMITIES: Negative edema. NEURO: Patient is alert, awake. LABORATORY DATA: White blood cell count of 2.2, hemoglobin 10.6, hematocrit 31.1, and platelets 188. BUN 8 and creatinine 0.8. ASSESSMENT AND PLAN: Mr. Napoles is a very pleasant 73-year-old gentleman with no significant past medical history other than hypertension, hyperlipidemia, and BPH, admitted to the hospital due to fever and cough. He underwent workup, which remained negative. Infectious disease has been consulted and patient has been started on IV antibiotics. Hematology/oncology has been consulted to assist with the management, specifically due to leukopenia. I have reviewed the record and discussed at length with the patient as well as family members about his current disease status and importance of further workup. Overall, it appears that the leukopenia is chronic and most recent white blood cell count back in June was 2.16. There is no reported history of leukemia or lymphoma. There is also no reported history of hepatitis or any liver pathology. However, patient's recent CT scan did show mild splenomegaly. At this point, recommendation would be to get baseline workup including acute hepatitis panel, vitamin level to rule out nutritional deficiencies and ultrasound of the abdomen to evaluate liver and spleen. Depending on the results, we will further recommendation. Patient may require bone marrow aspiration biopsy to rule out myelodysplastic syndrome especially due to him having recurrent infection. Thank you for the consult. I will continue to be available. Please call with questions. Job#: [id number] LEE ANN
[2018-08-05] VITALS (8 sets, daily range): BP systolic 115–177; BP diastolic 2–68
[2018-08-05] MEDS: DOXYCYCLINE 100MG/NS 100ML 100 ML IV SCH ×2 (05:12→17:06)
[2018-08-05 06:49] LABS: RETICULOCYTE % 0.9 % (0.8-2.2)
[2018-08-05] MEDS: ALBUTEROL SULF 0.083% NEB SOLN 3 ML NEB NEB SCH ×3 (06:59→19:40)
[2018-08-05] MEDS: IPRATROPIUM BROMIDE 0.02% 2.5 ML NEB NEB SCH ×5 (06:59→23:10)
[2018-08-05 07:25] LABS: FERRITIN 326.65 ng/mL (21.81-274.66)
[2018-08-05 08:31] LABS: FOLATE 10.3 ng/mL (7.0-15.4)
[2018-08-05] MEDS: LISINOPRIL 10 MG TAB PO SCH (09:23)
[2018-08-05] MEDS: FAMOTIDINE 20 MG TAB PO SCH ×2 (09:23→17:06)
--- NOTE | 2018-08-05 12:08 | Diagnostic Imaging Report ---
EXAMINATION: PA and lateral views of the chest. COMPARISON: None CLINICAL HISTORY: Pneumonia and fever DISCUSSION: Lines/tubes: None. Lungs: The lungs are well inflated and grossly clear. There is no evidence of pneumonia or pulmonary edema. Pleura: There is no pleural effusion or pneumothorax. Heart and mediastinum: Cardiomediastinal silhouette is unremarkable. Pulmonary vasculature is normal. Bones and soft tissues: No acute bony abnormalities. IMPRESSION: No acute cardiopulmonary abnormalities. Signed by: Dr. Lui William M.D. on 08/05/2018 12:04 PM
--- NOTE | 2018-08-05 12:19 | Diagnostic Imaging Report ---
EXAM: Complete Abdominal Ultrasound INDICATION: ^evaluation of LIVER SPLEEN COMPARISON: CT abdomen and pelvis 08/04/2018 TECHNIQUE: Transverse and longitudinal images of the upper abdomen were obtained. FINDINGS: Liver: Size: 13.6 cm in the right midclavicular line, normal Appearance: Normal echogenicity, smooth contour Mass: 2.1 x 1.5 x 1.6 cm cystic, anechoic lesion in the right hepatic lobe, consistent with previously visualized simple cyst. Spleen: Size: 11.2 cm in length, normal Echogenicity: Normal Mass: No focal masses Gallbladder: Absent Sonographic Galeas's Sign: Negative Bile Ducts: Intrahepatic Ducts: No dilatation Extrahepatic Ducts: Common bile duct measures 0.5 cm, no dilatation Pancreas: Obscured by overlying bowel gas Kidneys: Length: Right 10.9 cm Left 11.1 cm Echogenicity: Normal Collecting System: No hydronephrosis Stone: None Cyst/Mass: 2.6 x 2.2 x 2.5 cm and 1.9 x 1.4 x 2.4 cm cystic, anechoic lesions in the right kidney, consistent with previously visualized simple cysts. Vessels: Aorta: Visualized portions are normal Inferior Vena Cava: Visualized portions are normal Main Portal Vein: 0.5 cm, normal size with hepatopetal flow. Free Fluid: No ascites or pleural effusion IMPRESSION: 1. Renal and hepatic simple cysts, which require no further follow-up or diagnostic imaging. 2. Unremarkable spleen. Signed by: Dr. Lui William M.D. on 08/05/2018 12:16 PM
[2018-08-05] MEDS: ACETAMINOPHEN 325 MG TAB PO PRN ×2 (15:13→22:40)
--- NOTE | 2018-08-05 16:55 | Cardiology Report ---
DATE OF STUDY: ECHOCARDIOGRAM ATTENDING PHYSICIAN: Dr. Vikash Yeboah. M-MODE: Normal chamber wall dimensions. Normal contractility. Normal mitral aortic valves. No pericardial effusion. SECTOR SCAN: Normal chamber wall dimensions. Normal contractility. Normal mitral, aortic and tricuspid valves. No pericardial effusion. CAROTID DOPPLER STUDY WITH COLOR: Trace mitral pulmonic regurgitation. CONCLUSIONS 1. Left ventricular ejection fraction is approximately 55%. 2. Trace mitral tricuspid regurgitation. Job#: [id number] ZACK cc:DR. VIKASH YEBOAH
[2018-08-05] MEDS: ENOXAPARIN SOD INJ 40 MG/0.4 ML SYR SC SCH (17:00)
[2018-08-05] MEDS: TAMSULOSIN HCL 0.4 MG CAP PO SCH (21:26)
[2018-08-06] VITALS (8 sets, daily range): BP systolic 103–149; BP diastolic 53–82
[2018-08-06] MEDS: DOXYCYCLINE 100MG/NS 100ML 100 ML IV SCH ×2 (04:53→17:16)
[2018-08-06] MEDS: ALBUTEROL SULF 0.083% NEB SOLN 3 ML NEB NEB SCH ×3 (06:00→19:27)
[2018-08-06] MEDS: IPRATROPIUM BROMIDE 0.02% 2.5 ML NEB NEB SCH ×4 (06:00→23:35)
--- NOTE | 2018-08-06 08:24 | Consultation ---
DATE OF CONSULTATION: HEMATOLOGY CONSULTATION REQUESTING PHYSICIAN: Dr. Vikash Yeboah. REASON FOR CONSULTATION: Leukopenia. HISTORY OF PRESENT ILLNESS: Mr. Napoles is a 73-year-old gentleman that we were asked to visit with due to worsening leukopenia. The patient was admitted yesterday with complaints of cough and fevers. The patient was being treated as pneumonia for now. He was noted to have a mild leukopenia with a white blood cell count of 3.5 on admission, which worsened this morning to 1.87 with a neutrophil count of 1200 only. The patient denies any previous problems with CBCs. However, per documentation, it appears that he has been having problems with abnormal CBCs since May. Interestingly, he was also found to have some lymphadenopathy on imaging of the chest as well, which has been there since May as well. Otherwise, the patient denies any other history of liver disease or viral illnesses. PAST MEDICAL HISTORY 1. Hypertension. 2. Hyperlipidemia. PAST SURGICAL HISTORY 1. Cholecystectomy. 2. Prostate surgery. MEDICATIONS: Reviewed. ALLERGIES: NO KNOWN DRUG ALLERGIES. SOCIAL HISTORY: No smoking, drinking or illicit drug abuse. Patient is here with his family and has good social support. FAMILY HISTORY: Noncontributory. REVIEW OF SYSTEMS: A 10-system review was conducted constitutional, cardiovascular, respiratory, gastrointestinal, genitourinary, musculoskeletal, neurologic, psychiatric, endocrinology and neurologic. PHYSICAL EXAMINATION GENERAL: This patient is resting comfortably in no acute distress. VITAL SIGNS: Maximum temperature 101.3 degrees Fahrenheit, current temperature 98.1. Pulse is 71. Respiratory rate is 18. Blood pressure 109/69. CARDIOVASCULAR: Regular rhythm. Good S1 and S2. No murmurs, rubs or gallops. LUNGS: Clear to auscultation bilaterally. . ABDOMEN: Soft, nontender to palpation, mildly distended. Unable to get a good idea of spleen or liver given some voluntary guarding upon deep palpation. LABS: White blood cell count was 3.5 yesterday, 1.87 today. Absolute neutrophil count was 2900 yesterday, 1200 today. Hemoglobin 12.7 to 10.6, platelet count 227,000 to 276,000. PT 14.7, PTT 33.1. Sodium 133, creatinine 0.86. IMAGING: CT scan of the chest reveals no pulmonary nodules with a stable but enlarged right lower paratracheal lymph node 1.5 cm in size, 1.4 cm enlarged subcarinal lymph node, right hilar lymph node that is about 1.5 cm in size, and another right hilar node that is 1 cm in size. Nothing on the left side, no supraclavicular lymphadenopathy. Some of the abdomen was also caught on this image, showing a simple cyst in the liver, mild splenomegaly 12.8 cm in size. IMPRESSION 1. Acute neutropenia. 2. Mediastinal lymphadenopathy. 3. Mild splenomegaly. 4. Fevers. RECOMMENDATIONS: In summary, this is a gentleman with recurrent cytopenias and stable and mildly worsening lymphadenopathy noted on CT imaging. Patient is admitted with fevers. Hematology consultation was requested given the leukopenia and lymphadenopathy. I have recommended proper viral serology testing with HIV, hepatitis C, as well as checking antibodies such as BEATRIZ and rheumatoid factor. I have placed these orders in. Given the fevers, lymphadenopathy, and splenomegaly, lymphoma should certainly be in the differential. If the above workup is negative, then I would highly recommend bronchoscopy with sampling of the subcarinal or hilar lymph nodes. If no proper tissue is able to be obtained otherwise, I would recommend proceeding with CT scan of the abdomen and pelvis with contrast to evaluate for any lesions in the liver that could be biopsied or any other sites of lymphadenopathy. Right now, with the question of the neutropenia, I would continue to observe and would not give Neupogen support right now. His neutrophil count is over 1000. If his neutrophil count drops under 1000 closer to 500, I would start him on Neupogen 480 mcg subcutaneous daily. He is having fevers at the moment. Thank you very much for this kind consultation request. I am covering for Dr. Person today. However, he will be back tomorrow to resume the patient's care. The patient was checked out to Dr. Person. Job#: [id number] EV
[2018-08-06] MEDS: LISINOPRIL 10 MG TAB PO SCH (09:02)
[2018-08-06] MEDS: PREDNISONE 10 MG TAB PO SCH (09:02)
[2018-08-06] MEDS: ACETAMINOPHEN 325 MG TAB PO PRN (09:02)
[2018-08-06] MEDS: FAMOTIDINE 20 MG TAB PO SCH ×2 (09:02→17:16)
[2018-08-06] MEDS ORDERED: NAPROXEN 250 MG TAB PO PRN (12:30)
[2018-08-06] MEDS: ENOXAPARIN SOD INJ 40 MG/0.4 ML SYR SC SCH (17:16)
[2018-08-06] MEDS: TAMSULOSIN HCL 0.4 MG CAP PO SCH (21:15)
[2018-08-07] VITALS: BP 141/63
[2018-08-07 04:00] VITALS: BP 110/55
[2018-08-07] MEDS: DOXYCYCLINE 100MG/NS 100ML 100 ML IV SCH ×2 (04:28→16:17)
[2018-08-07] MEDS: ALBUTEROL SULF 0.083% NEB SOLN 3 ML NEB NEB SCH ×2 (07:00→19:35)
[2018-08-07] MEDS: IPRATROPIUM BROMIDE 0.02% 2.5 ML NEB NEB SCH (07:00)
[2018-08-07 08:25] VITALS: BP 126/66
[2018-08-07] MEDS: PREDNISONE 10 MG TAB PO SCH (08:32)
[2018-08-07] MEDS: LISINOPRIL 10 MG TAB PO SCH (08:32)
[2018-08-07] MEDS: FAMOTIDINE 20 MG TAB PO SCH ×2 (08:32→16:17)
[2018-08-07 10:45] VITALS: BP 132/60
[2018-08-07 12:28] VITALS: BP 135/63
[2018-08-07] MEDS: ENOXAPARIN SOD INJ 40 MG/0.4 ML SYR SC SCH (16:17)
[2018-08-07 16:40] VITALS: BP 141/68
== END 2018-08-07 20:08 | disposition short-term general hospital (02) | DRG 871 ==
LOC: ER 11:25 → ERHOLD 14:14 → MED/SURG3 14:49 → OBSVTOIN 08-04 09:14
PROVIDERS: ADMIT Internal Medicine Critical Care Medicine; ATTEND Internal Medicine Critical Care Medicine
DX: A41.9 Sepsis, unspecified organism (principal); J15.9 Unspecified bacterial pneumonia; E87.1 Hypo-osmolality and hyponatremia; D61.818 Other pancytopenia; N40.0 Benign prostatic hyperplasia without lower urinary tract symptoms; R59.0 Localized enlarged lymph nodes; R16.1 Splenomegaly, not elsewhere classified; I10 Essential (primary) hypertension; E78.5 Hyperlipidemia, unspecified
CPT/HCPCS: 36415; 71046; 71260; 74177; 74230; 76700; 80053; 81001; 82550; 82553; 82607; 82728; 82746; 83540; 83605; 83615; 83690; 83735; 83880; 84443; 84466; 84484; 85025; 85045; 85610; 85651; 85730; 86039; 86431; 86803; 87040; 87086; 87390; 87400; 93005; 93306; 94640; 99284; G0378; G0433; G0435; J0456; J0696; J1650; J2405; J7030; J7050; J7512; Q9967

== ENCOUNTER → 2019-06-12 | Outpatient (CLI) | payer MEDICARE ==
[~2019-06-12] MED LIST changes: +IOPAMIDOL 370 MG/ML 200 ML INFUS..BTL INJ ONE; +SODIUM CHLORIDE 0.9% 250ML 250 ML ONE
[2019-06-12 08:41] LABS: BLOOD UREA NITROGEN 11 mg/dL (7-26); BUN/CREATININE RATIO 13 (6-25); CREATININE, SERUM 0.88 mg/dL (0.72-1.25); EST GLOMERULAR FILTRATION RATE > 60 ML/MIN (60-)
--- NOTE | 2019-06-12 10:29 | Diagnostic Imaging Report ---
EXAM: CT Abdomen and Pelvis WITHOUT and WITH intravenous contrast - Hematuriaprotocol INDICATION: Microscopic hematuria COMPARISON: CT abdomen and pelvis of 08/04/2018 TECHNIQUE: Abdomen and pelvis were scanned utilizing a multidetector helical scanner from the lung base to the pubic symphysis before and after administration of IV contrast. Coronal and sagittal reformations were obtained. Hematuria protocol was used. Scan was performed prior to contrast administration and during portal venous phase. IV CONTRAST: 100 mL of Isovue 370 ORAL CONTRAST: Water COMPLICATIONS: None RADIATION DOSE: Total DLP: 1095.3 mGy*cm Dose modulation, iterative reconstruction, and/or weight based adjustment of the mA/kV was utilized to reduce the radiation dose to as low as reasonably achievable. FINDINGS: LOWER THORAX: Normal. HEPATOBILIARY: 1.5 cm right hepatic cyst. No other focal liver lesions. A 3.8 mm calcific density in the common bile duct may represent a nonobstructing calculus. No intrahepatic biliary ductal dilation. Status post cholecystectomy. SPLEEN: No splenomegaly. PANCREAS: No focal masses or ductal dilatation. ADRENALS: No adrenal nodules. KIDNEYS/URETERS: No hydronephrosis or renal calculi. Bilateral renal cysts, subcentimeter on the left and measuring up to 2.5 cm on the right. The larger right renal cyst is a parapelvic cyst. Extra phase images demonstrate opacification of nearly the entire course of both ureters with no evidence of filling defect to suggest urothelial mass lesion. PELVIC ORGANS/BLADDER: Prostatomegaly to 5.4 cm with coarse internal calcifications. PERITONEUM / RETROPERITONEUM: No free air or fluid. LYMPH NODES: No lymphadenopathy. VESSELS: Scattered athetotic calcifications of the nonaneurysmal abdominal aorta and major branches. GI TRACT: Mild diverticulosis without CT evidence of diverticulitis. No abnormal bowel wall thickening. No bowel obstruction. BONES AND SOFT TISSUES: Unchanged area of retroperitoneal soft tissue thickening and coarse calcifications posterior to the inferior margin of liver and right kidney, possibly related to remote postsurgical or post traumatic changes. IMPRESSION: No hydronephrosis or renal calculi. Bilateral renal cysts as above. Status post cholecystectomy. A 3.8 mm calcific density in the common bile duct may represent a nonobstructing calculus. No intrahepatic biliary ductal dilation. Prostatomegaly. Signed by: Phylicia Christiansen MD on 06/12/2019 10:26 AM
== END ==
LOC: CT 07:54
PROVIDERS: ATTEND Urology
DX: R31.21 Asymptomatic microscopic hematuria (principal)
CPT/HCPCS: 36415; 74178; 82565; 84520; J7050; Q9967

== ENCOUNTER 2020-08-14 07:05 | Inpatient (IN) | payer MEDICARE ==
[~2020-08-14] VITALS: Ht 172.7 cm; Wt 78.0 kg
[~2020-08-14 07:05] MED LIST changes: -IOPAMIDOL 370 MG/ML 200 ML INFUS..BTL INJ ONE; -SODIUM CHLORIDE 0.9% 250ML 250 ML ONE
[2020-08-14] MEDS ORDERED: SODIUM CHLORIDE 0.9% 1000ML 1,000 ML IV STA ×2 (07:10)
[2020-08-14] MEDS ORDERED: PIPER-TAZ 3.375 GM 50 ML IV STA (07:10)
[2020-08-14] MEDS ORDERED: ACETAMINOPHEN 325 MG TAB PO ONE (07:15)
[2020-08-14 07:39] LABS: BASOPHILS % 0.2 % (0.0-1.0); EOSINOPHILS % 0.2 % (0.0-6.0); HEMATOCRIT 33.6 % (38.2-49.6); HEMOGLOBIN 11.4 g/dL (14.0-18.0); LYMPHOCYTES # (AUTO) 0.2 (1.0-3.2); LYMPHOCYTES % 2.3 % (18.0-39.1); MEAN CORPUSCULAR HEMOGLOBIN 30.3 pg (28-32); MEAN CORPUSCULAR HGB CONC 33.9 g/dL (31-35); MEAN CORPUSCULAR VOLUME 89.4 fL (81-99); MONOCYTES # (AUTO) 0.4 (0.2-0.8); MONOCYTES % 4.3 % (4.4-11.3); NEUTROPHILS # (AUTO) 8.6 (2.1-6.9); NEUTROPHILS % 92.6 % (38.7-80.0); PLATELET COUNT 240 x10e3/uL (140-360); RED BLOOD COUNT 3.76 x10e6/uL (4.3-5.7); RED CELL DISTRIBUTION WIDTH 12.5 % (11.7-14.4)
[2020-08-14 07:59] LABS: ALANINE AMINOTRANSFERASE 17 IU/L (0-55); ALBUMIN 2.9 g/dL (3.5-5.0); ALBUMIN/GLOBULIN RATIO 0.6 (0.8-2.0); ALKALINE PHOSPHATASE 70 IU/L (40-150); ANION GAP 13.4 mmol/L (8-16); BLOOD UREA NITROGEN 11 mg/dL (7-26); BUN/CREATININE RATIO 14 (6-25); CARBON DIOXIDE 23 mmol/L (22-29); CHLORIDE 99 mmol/L (98-107); CREATINE KINASE 70 IU/L (30-200); CREATININE, SERUM 0.79 mg/dL (0.72-1.25); EST GLOMERULAR FILTRATION RATE > 60 ML/MIN (60-); GLUCOSE 137 mg/dL (74-118); LIPASE 258 U/L (8-78); POTASSIUM 3.4 mmol/L (3.5-5.1); SODIUM 132 mmol/L (136-145)
[2020-08-14] MEDS ORDERED: MORPHINE SULFATE INJ 4 MG/ML INJ 1ML IV PRN (09:15)
[2020-08-14] MEDS ORDERED: ONDANSETRON HCL INJ 2MG/ML 2ML 2 MG/ML VIAL IV PRN (09:15)
[2020-08-14 10:25] LABS: BAND NEUTROPHILS % (MANUAL) 4 %; LYMPHOCYTES % (MANUAL) 2 % (19-48); MONOCYTES % (MANUAL) 3 % (3.4-9.0); NEUTROPHILS % (MANUAL) 91 % (40-74)
[2020-08-14] MEDS ORDERED: IOPAMIDOL 370 MG/ML 200 ML INFUS..BTL INJ ONE (10:27)
[2020-08-14] MEDS ORDERED: SODIUM CHLORIDE 0.9% 50ML 50 ML ONE (10:27)
[2020-08-14] MEDS ORDERED: TAMSULOSIN PO (10:47)
[2020-08-14] MEDS ORDERED: K DUR10 MEQ (10:47)
[2020-08-14] MEDS ORDERED: PROCTO-MED HC30 GM (10:47)
[2020-08-14] MEDS ORDERED: FUROSEMIDE40 MG (10:47)
[2020-08-14 12:28] VITALS: BP 114/67
[2020-08-14] MEDS: SODIUM CHLORIDE 0.9% 1000ML 1,000 ML IV SCH ×2 (12:34→22:02)
[2020-08-14 12:41] LABS: BILIRUBIN,URINE NEGATIVE (NEGATIVE); CLARITY,URINE CLEAR (CLEAR); COLOR,URINE YELLOW (YELLOW); KETONES,URINE NEGATIVE (NEGATIVE); LEUKOCYTE ESTERASE ,URINE TRACE (NEGATIVE); NITRITE,URINE NEGATIVE (NEGATIVE); PROTEIN,URINE DIPSTICK NEGATIVE (NEGATIVE); URINE UROBILINOGEN 0.2 mg/dL (0.2 - 1)
[2020-08-14 12:48] LABS: BACTERIA,URINE RARE /HPF; EPITHELIAL CELLS,URINE FEW /LPF
[2020-08-14 13:00] VITALS: BP 114/67
[2020-08-14 13:20] VITALS: BP 114/67
[2020-08-14 15:37] VITALS: BP 143/81
[2020-08-14] MEDS: ACETAMINOPHEN 325 MG TAB PO PRN ×2 (16:23→22:23)
[2020-08-14 20:00] VITALS: BP 121/58
[2020-08-14 22:05] VITALS: BP 121/58
[2020-08-15] VITALS (10 sets, daily range): BP systolic 104–167; BP diastolic 51–82
[2020-08-15 05:42] LABS: BASOPHILS % 0.1 % (0.0-1.0); HEMATOCRIT 29.7 % (38.2-49.6); LYMPHOCYTES # (AUTO) 0.4 (1.0-3.2); LYMPHOCYTES % 5.3 % (18.0-39.1); MEAN CORPUSCULAR HGB CONC 33.7 g/dL (31-35); MONOCYTES # (AUTO) 0.3 (0.2-0.8); MONOCYTES % 4.4 % (4.4-11.3); NEUTROPHILS % 89.4 % (38.7-80.0); PLATELET COUNT 227 x10e3/uL (140-360); RED BLOOD COUNT 3.23 x10e6/uL (4.3-5.7); RED CELL DISTRIBUTION WIDTH 12.6 % (11.7-14.4)
[2020-08-15] MEDS: SODIUM CHLORIDE 0.9% 1000ML 1,000 ML IV SCH ×2 (05:57→08:28)
[2020-08-15] MEDS: ACETAMINOPHEN 325 MG TAB PO PRN ×2 (06:04→16:14)
[2020-08-15 06:11] LABS: ALANINE AMINOTRANSFERASE 17 IU/L (0-55); ALBUMIN 2.4 g/dL (3.5-5.0); ALBUMIN/GLOBULIN RATIO 0.6 (0.8-2.0); ALKALINE PHOSPHATASE 72 IU/L (40-150); ANION GAP 12.6 mmol/L (8-16); BLOOD UREA NITROGEN 8 mg/dL (7-26); BUN/CREATININE RATIO 10 (6-25); CALCIUM 7.5 mg/dL (8.4-10.2); CARBON DIOXIDE 23 mmol/L (22-29); CHLORIDE 101 mmol/L (98-107); CREATININE, SERUM 0.79 mg/dL (0.72-1.25); EST GLOMERULAR FILTRATION RATE > 60 ML/MIN (60-); GLUCOSE 112 mg/dL (74-118); POTASSIUM 3.6 mmol/L (3.5-5.1); SODIUM 133 mmol/L (136-145)
[2020-08-15] MEDS ORDERED: GUAIFENESIN/DEXTROMETHORPHAN LIQD 5 ML UDC PO PRN (07:30)
[2020-08-15] MEDS: AZITHROMYCIN 500MG/NS 250 ML 250 ML IV SCH (08:27)
[2020-08-15] MEDS ORDERED: BENZONATATE 100 MG CAP PO SCH (09:00)
[2020-08-15] MEDS: ALBUTEROL/IPRATROPIUM 3 ML NEB NEB PRN ×3 (09:02→21:05)
[2020-08-15] MEDS ORDERED: ZOLPIDEM TARTRATE 5 MG TAB PO PRN (09:45)
[2020-08-15] MEDS ORDERED: DOCUSATE SODIUM 100 MG CAP PO PRN (09:45)
[2020-08-15] MEDS ORDERED: CEFEPIME 1GM/NS 0.9% 50 ML 50 ML IV SCH ×2 (10:00→13:00)
[2020-08-15] MEDS: TAMSULOSIN HCL 0.4 MG CAP PO SCH (16:14)
[2020-08-15] MEDS: GUAIFENESIN/CODEINE 10 ML CUP PO PRN ×2 (16:14→21:22)
[2020-08-15] MEDS: METHYLPREDNISOLONE SOD SUCC 125 MG/2ML VIAL IV SCH (17:00)
[2020-08-15] MEDS: CEFEPIME 1GM/NS 0.9% 50 ML 50 ML IV SCH (21:22)
[2020-08-16] VITALS (8 sets, daily range): BP systolic 115–144; BP diastolic 65–71
[2020-08-16] MEDS: ALBUTEROL/IPRATROPIUM 3 ML NEB NEB PRN ×5 (01:45→19:48)
[2020-08-16] MEDS: CEFEPIME 1GM/NS 0.9% 50 ML 50 ML IV SCH ×3 (02:52→20:02)
[2020-08-16] MEDS: SODIUM CHLORIDE 0.9% 1000ML 1,000 ML IV SCH ×2 (02:52→20:02)
[2020-08-16] MEDS: METHYLPREDNISOLONE SOD SUCC 125 MG/2ML VIAL IV SCH (05:35)
[2020-08-16 06:56] LABS: HEMATOCRIT 29.6 % (38.2-49.6); LYMPHOCYTES # (AUTO) 0.2 (1.0-3.2); LYMPHOCYTES % 4.7 % (18.0-39.1); MEAN CORPUSCULAR HEMOGLOBIN 31.3 pg (28-32); MEAN CORPUSCULAR HGB CONC 33.8 g/dL (31-35); MEAN CORPUSCULAR VOLUME 92.5 fL (81-99); MONOCYTES # (AUTO) 0.1 (0.2-0.8); MONOCYTES % 2.9 % (4.4-11.3); NEUTROPHILS # (AUTO) 3.1 (2.1-6.9); NEUTROPHILS % 92.1 % (38.7-80.0); PLATELET COUNT 195 x10e3/uL (140-360); RED CELL DISTRIBUTION WIDTH 12.5 % (11.7-14.4)
[2020-08-16 07:17] LABS: ALANINE AMINOTRANSFERASE 16 IU/L (0-55); ALBUMIN 2.2 g/dL (3.5-5.0); ALBUMIN/GLOBULIN RATIO 0.5 (0.8-2.0); ALKALINE PHOSPHATASE 70 IU/L (40-150); ANION GAP 10.5 mmol/L (8-16); BLOOD UREA NITROGEN 11 mg/dL (7-26); BUN/CREATININE RATIO 15 (6-25); CALCIUM 7.9 mg/dL (8.4-10.2); CARBON DIOXIDE 23 mmol/L (22-29); CHLORIDE 102 mmol/L (98-107); CREATININE, SERUM 0.75 mg/dL (0.72-1.25); EST GLOMERULAR FILTRATION RATE > 60 ML/MIN (60-); GLUCOSE 264 mg/dL (74-118); POTASSIUM 3.5 mmol/L (3.5-5.1); SODIUM 132 mmol/L (136-145)
[2020-08-16 07:36] LABS: CHOL/HDL RATIO 3.7 (3.9-4.7)
[2020-08-16] MEDS: TAMSULOSIN HCL 0.4 MG CAP PO SCH (08:29)
[2020-08-16] MEDS: PANTOPRAZOLE SOD 40 MG TABEC PO SCH (08:29)
[2020-08-16] MEDS: LORATADINE 10 MG TAB PO SCH (08:29)
[2020-08-16] MEDS: AZITHROMYCIN 500MG/NS 250 ML 250 ML IV SCH (08:30)
[2020-08-16] MEDS: GUAIFENESIN/CODEINE 10 ML CUP PO PRN (20:02)
[2020-08-17] MEDS: CEFEPIME 1GM/NS 0.9% 50 ML 50 ML IV SCH ×2 (03:34→12:00)
[2020-08-17 05:00] VITALS: BP 133/54
[2020-08-17 07:45] VITALS: BP 130/75
[2020-08-17 07:48] VITALS: BP 130/75
[2020-08-17] MEDS: AZITHROMYCIN 500MG/NS 250 ML 250 ML IV SCH (08:30)
[2020-08-17] MEDS: LORATADINE 10 MG TAB PO SCH (09:47)
[2020-08-17] MEDS: PANTOPRAZOLE SOD 40 MG TABEC PO SCH (09:48)
[2020-08-17] MEDS: TAMSULOSIN HCL 0.4 MG CAP PO SCH (09:48)
[2020-08-17 11:05] VITALS: BP 130/70
[2020-08-17 15:20] VITALS: BP 123/69
[2020-08-18] MEDS ORDERED: AZITHROMYCIN 250 MG TAB PO SCH (08:00)
== END 2020-08-17 15:38 | disposition home or self-care (01) | DRG 202 ==
LOC: ER 07:15 → ERHOLD 09:05 → MED/SURG3 12:08 → OBSVTOIN 08-15 09:50
PROVIDERS: ADMIT Internal Medicine; ATTEND Internal Medicine
DX: J45.901 Unspecified asthma with (acute) exacerbation (principal); J18.9 Pneumonia, unspecified organism; E87.1 Hypo-osmolality and hyponatremia; J44.0 Chronic obstructive pulmonary disease with (acute) lower respiratory infection; R91.8 Other nonspecific abnormal finding of lung field; I10 Essential (primary) hypertension; E87.6 Hypokalemia; R16.1 Splenomegaly, not elsewhere classified; D50.0 Iron deficiency anemia secondary to blood loss (chronic); Z20.828 Contact with and (suspected) exposure to other viral communicable diseases
CPT/HCPCS: 36415; 71045; 71260; 80053; 80061; 81001; 82550; 82553; 82948; 83036; 83605; 83690; 83880; 84484; 85025; 87040; 87070; 87205; 87400; 93005; 93306; 94640; 99284; G0378; J0456; J0692; J2405; J2543; J2930; J7030; Q9967; U0002

== ENCOUNTER 2020-10-17 23:50 | Emergency (ER) | payer MEDICARE ==
[~2020-10-17] VITALS: Ht 172.7 cm; Wt 78.0 kg
[~2020-10-17 23:50] MED LIST changes: +FUROSEMIDE40 MG; +K DUR10 MEQ; +PROCTO-MED HC30 GM; +TAMSULOSIN PO
[2020-10-18] MEDS ORDERED: FUROSEMIDE INJ 10 MG/ML 2 ML VIAL IV ONE (00:15)
[2020-10-18 00:56] LABS: BASOPHILS % 0.2 % (0.0-1.0); EOSINOPHILS % 0.1 % (0.0-6.0); HEMATOCRIT 28.3 % (38.2-49.6); HEMOGLOBIN 9.4 g/dL (14.0-18.0); LYMPHOCYTES # (AUTO) 0.5 (1.0-3.2); LYMPHOCYTES % 5.1 % (18.0-39.1); MEAN CORPUSCULAR HEMOGLOBIN 29.7 pg (28-32); MEAN CORPUSCULAR HGB CONC 33.2 g/dL (31-35); MEAN CORPUSCULAR VOLUME 89.3 fL (81-99); MONOCYTES # (AUTO) 0.3 (0.2-0.8); MONOCYTES % 3.6 % (4.4-11.3); NEUTROPHILS # (AUTO) 7.8 (2.1-6.9); NEUTROPHILS % 86.5 % (38.7-80.0); PLATELET COUNT 79 x10e3/uL (140-360); RED BLOOD COUNT 3.17 x10e6/uL (4.3-5.7); RED CELL DISTRIBUTION WIDTH 15.9 % (11.7-14.4)
[2020-10-18 01:08] LABS: ALANINE AMINOTRANSFERASE 28 IU/L (0-55); CARBON DIOXIDE 21 mmol/L (22-29); CHLORIDE 93 mmol/L (98-107); SODIUM 123 mmol/L (136-145)
[2020-10-18 01:13] LABS: ALBUMIN 1.7 g/dL (3.5-5.0); ALBUMIN/GLOBULIN RATIO 0.4 (0.8-2.0); ALKALINE PHOSPHATASE 77 IU/L (40-150); CALCIUM 7.4 mg/dL (8.4-10.2); CREATININE, SERUM 0.78 mg/dL (0.72-1.25); EST GLOMERULAR FILTRATION RATE > 60 ML/MIN (60-); GLUCOSE 110 mg/dL (74-118)
[2020-10-18 01:24] LABS: BLOOD UREA NITROGEN 23 mg/dL (7-26); BUN/CREATININE RATIO 30 (6-25)
[2020-10-18] MEDS ORDERED: SODIUM CHLORIDE1 GM PO (01:59)
[2020-10-18] MEDS ORDERED: LASIX20 MG PO (01:59)
[2020-10-18 02:27] VITALS: BP 122/61
[2020-10-18 03:09] LABS: BLAST CELLS % MANUAL 2; EOSINOPHILS % (MANUAL) 3 % (0-7); LYMPHOCYTES % (MANUAL) 2 % (19-48); MONOCYTES % (MANUAL) 3 % (3.4-9.0); NEUTROPHILS % (MANUAL) 88 % (40-74); PROMYELOCYTES % (MANUAL) 2 % (0-0)
[2020-10-18 03:11] LABS: HYPOCHROMASIA SLIGHT; PLATELET ESTIMATE MARKEDLY DECREASED; PLATELET MORPHOLOGY COMMENT MANY EDTA CLUMPING; POIKILOCYTOSIS SLIGHT
== END 2020-10-18 02:34 | disposition home or self-care (01) ==
LOC: ER 10-18 00:07
DX: R60.9 Edema, unspecified (principal); E78.5 Hyperlipidemia, unspecified
CPT/HCPCS: 36415; 71045; 80053; 83880; 84484; 85025; 93005; 99283; J1940

== ENCOUNTER 2022-01-20 10:21 | Emergency (ER) | payer MEDICARE ==
[~2022-01-20] VITALS: Ht 172.7 cm; Wt 76.8 kg
[~2022-01-20 10:21] MED LIST changes: +LASIX20 MG PO; +SODIUM CHLORIDE1 GM PO
[2022-01-20] MEDS ORDERED: SODIUM CHLORIDE 0.9% 1000ML 1,000 ML IV STA (10:54)
[2022-01-20] MEDS ORDERED: ONDANSETRON HCL INJ 2MG/ML 2ML 2 MG/ML VIAL IV STA (10:54)
[2022-01-20] MEDS ORDERED: SODIUM CHLORIDE 0.9% 1000ML 1,000 ML ONE (11:05)
[2022-01-20] MEDS ORDERED: ONDANSETRON HCL INJ 2MG/ML 2ML 2 MG/ML VIAL ONE (11:05)
== END 2022-01-20 11:57 | disposition home or self-care (01) ==
LOC: FSED 10:31
DX: R42 Dizziness and giddiness (principal); E86.0 Dehydration; R11.10 Vomiting, unspecified; E78.5 Hyperlipidemia, unspecified
CPT/HCPCS: 80053; 81003; 84484; 85025; 93005; 96374; 99284; J2405; J7030

== ENCOUNTER 2022-01-24 10:00 | Emergency (ER) | payer MEDICARE ==
[~2022-01-24] VITALS: Ht 172.7 cm; Wt 76.7 kg
[2022-01-24 11:49] LABS: BASOPHILS % 0.3 % (0.0-1.0); EOSINOPHILS # (AUTO) 0.1 (0.0-0.4); EOSINOPHILS % 2.2 % (0.0-6.0); HEMOGLOBIN 12.6 g/dL (14.0-18.0); LYMPHOCYTES # (AUTO) 0.5 (1.0-3.2); LYMPHOCYTES % 16.1 % (18.0-39.1); MEAN CORPUSCULAR HEMOGLOBIN 32.6 pg (28-32); MEAN CORPUSCULAR HGB CONC 33.2 g/dL (31-35); MEAN CORPUSCULAR VOLUME 98.4 fL (81-99); MONOCYTES # (AUTO) 0.3 (0.2-0.8); MONOCYTES % 8.1 % (4.4-11.3); NEUTROPHILS # (AUTO) 2.4 (2.1-6.9); PLATELET COUNT 205 x10e3/uL (140-360); RED BLOOD COUNT 3.86 x10e6/uL (4.3-5.7); RED CELL DISTRIBUTION WIDTH 12.6 % (11.7-14.4)
[2022-01-24 12:12] LABS: INR 1.05; PROTHROMBIN TIME 14.6 seconds (11.9-14.5)
[2022-01-24 12:13] LABS: ALANINE AMINOTRANSFERASE 16 IU/L (0-55); ALBUMIN/GLOBULIN RATIO 0.6 (0.8-2.0); ALKALINE PHOSPHATASE 64 IU/L (40-150); BLOOD UREA NITROGEN 11 mg/dL (7-26); BUN/CREATININE RATIO 14 (6-25); CALCIUM 8.4 mg/dL (8.4-10.2); CARBON DIOXIDE 26 mmol/L (22-29); CHLORIDE 103 mmol/L (98-107); CREATINE KINASE 19 IU/L (30-200); EST GLOMERULAR FILTRATION RATE 94 ML/MIN (60-); GLUCOSE 140 mg/dL (74-118); PARTIAL THROMBOPLASTIN TIME 33.2 seconds (23.8-35.5); SODIUM 138 mmol/L (136-145)
[2022-01-24 13:00] VITALS: BP 130/63
[2022-01-24] MEDS ORDERED: ULTRACET TABLE1 EACH PO (14:53)
== END 2022-01-24 15:19 | disposition home or self-care (01) ==
LOC: ER 10:35
DX: R51.9 Headache, unspecified (principal); R42 Dizziness and giddiness; I10 Essential (primary) hypertension; E78.5 Hyperlipidemia, unspecified; I50.9 Heart failure, unspecified
CPT/HCPCS: 36415; 70450; 72125; 80053; 82550; 82553; 83880; 84484; 85025; 85610; 85730; 93005; 99284

== ENCOUNTER 2022-02-19 13:31 | Emergency (ER) | payer MEDICARE, OTHER ==
[~2022-02-19] VITALS: Ht 172.7 cm; Wt 80.3 kg
[~2022-02-19 13:31] MED LIST changes: +ULTRACET TABLE1 EACH PO
[2022-02-19] MEDS ORDERED: TETANUS/DIPHTHERIA TOX ADULT 0.5 ML SYR ONE (14:13)
[2022-02-19] MEDS ORDERED: TETANUS/DIPHTHERIA TOX ADULT 0.5 ML SYR IM ONE (14:15)
[2022-02-19] MEDS ORDERED: BACITRACIN ZINC 0.9GM TP ONE (16:00)
[2022-02-19] MEDS ORDERED: LIDOCAINE 1% W/EPINEPHRINE 20 ML VIAL INJ ONE (16:00)
== END 2022-02-19 17:09 | disposition home or self-care (01) ==
LOC: ER 14:05
DX: S61.411A Laceration without foreign body of right hand, initial encounter (principal); W23.1XXA Caught, crushed, jammed, or pinched between stationary objects, initial encounter; Y92.89 Other specified places as the place of occurrence of the external cause; I10 Essential (primary) hypertension; E78.5 Hyperlipidemia, unspecified; I50.9 Heart failure, unspecified
CPT/HCPCS: 90714; 99284

== ENCOUNTER 2024-03-13 17:22 | Emergency (ER) | payer MEDICARE ==
[~2024-03-13] VITALS: Ht 172.7 cm; Wt 80.3 kg
[~2024-03-13 17:22] MED LIST changes: +PAXLOVID 300-11 EACH PO
[2024-03-13 17:35] VITALS: PULSE 89; RESP 16; TEMP 98.6
[2024-03-13 18:06] LABS: BASOPHILS % 0.2 % (0.0-1.0); EOSINOPHILS # (AUTO) 0.1 (0.0-0.4); EOSINOPHILS % 2.2 % (0.0-6.0); HEMATOCRIT 30.4 % (38.2-49.6); HEMOGLOBIN 9.9 g/dL (14.0-18.0); LYMPHOCYTES # (AUTO) 0.4 (1.0-3.2); LYMPHOCYTES % 7.6 % (18.0-39.1); MEAN CORPUSCULAR HEMOGLOBIN 33.8 pg (28-32); MEAN CORPUSCULAR HGB CONC 32.6 g/dL (31-35); MEAN CORPUSCULAR VOLUME 103.8 fL (81-99); MONOCYTES # (AUTO) 0.2 (0.2-0.8); MONOCYTES % 3.2 % (4.4-11.3); NEUTROPHILS % 85.9 % (38.7-80.0); PLATELET COUNT 125 x10e3/uL (140-360); RED BLOOD COUNT 2.93 x10e6/uL (4.3-5.7); RED CELL DISTRIBUTION WIDTH 12.7 % (11.7-14.4); WHITE BLOOD COUNT 4.63 x10e3/uL (4.8-10.8)
[2024-03-13] MEDS: SODIUM CHLORIDE 0.9% 1000ML 1,000 ML IV STA ×2 (18:34→18:35)
[2024-03-13 18:35] LABS: ALANINE AMINOTRANSFERASE 28 IU/L (0-55); ALBUMIN/GLOBULIN RATIO 0.6 (0.8-2.0); ALKALINE PHOSPHATASE 77 IU/L (40-150); ANION GAP 14.6 mmol/L (8-16); BILIRUBIN,TOTAL 0.4 mg/dL (0.2-1.2); BLOOD UREA NITROGEN 13 mg/dL (7-26); BUN/CREATININE RATIO 17 (6-25); CALCIUM 8.4 mg/dL (8.4-10.2); CARBON DIOXIDE 23 mmol/L (22-29); CHLORIDE 98 mmol/L (98-107); CREATINE KINASE 14 IU/L (30-200); CREATININE, SERUM 0.75 mg/dL (0.72-1.25); EST GLOMERULAR FILTRATION RATE 93 ML/MIN (>=60); GLUCOSE 117 mg/dL (74-118); POTASSIUM 3.6 mmol/L (3.5-5.1); SODIUM 132 mmol/L (136-145)
[2024-03-13] MEDS: ONDANSETRON HCL INJ 2MG/ML 2ML 2 MG/ML VIAL IV STA (18:35)
[2024-03-13 18:43] LABS: TROPONIN I < 0.001 ng/mL (0-0.300)
[2024-03-13 18:49] LABS: BILIRUBIN,URINE NEGATIVE (NEGATIVE); CLARITY,URINE CLEAR (CLEAR); COLOR,URINE YELLOW (YELLOW); GLUCOSE, URINE NEGATIVE (NEGATIVE); KETONES,URINE NEGATIVE (NEGATIVE); LEUKOCYTE ESTERASE ,URINE NEGATIVE (NEGATIVE); NITRITE,URINE NEGATIVE (NEGATIVE); PH,URINE 6 (5 - 7); PROTEIN,URINE DIPSTICK 1+ (NEGATIVE); URINE UROBILINOGEN 0.2 mg/dL (0.2 - 1)
[2024-03-13] MEDS ORDERED: IOPAMIDOL 370 MG/ML 100 ML INFUS..BTL INJ ONE (18:56)
[2024-03-13 19:03] LABS: WBC,URINE (MAN) 0-5 /HPF (0-5)
[2024-03-13 19:04] LABS: BACTERIA,URINE MODERATE /HPF; EPITHELIAL CELLS,URINE MODERATE /LPF; MUCUS,URINE MANY (RARE)
[2024-03-13] MEDS ORDERED: ONDANSETRON ODT4 MG PO (20:11)
[2024-03-13] MEDS ORDERED: AMOX TR-K CLV1 EAC2 PO (20:11)
[2024-03-13 20:37] VITALS: BP 140/83; PULSE 89; RESP 16; TEMP 98.6; O2SAT 99
== END 2024-03-13 20:30 | disposition home or self-care (01) ==
LOC: ER 17:56
DX: J90 Pleural effusion, not elsewhere classified (principal); R10.12 Left upper quadrant pain; D61.818 Other pancytopenia
CPT/HCPCS: 36415; 71045; 74177; 80053; 81001; 82550; 83690; 84484; 85025; 93005; 99284; J2405; J7030; Q9967; U0002

== ENCOUNTER 2024-04-18 10:31 | Emergency (ER) | payer MEDICARE ==
[~2024-04-18] VITALS: Ht 172.7 cm; Wt 80.3 kg
[~2024-04-18 10:31] MED LIST changes: +AMOX TR-K CLV1 EAC2 PO; +ONDANSETRON ODT4 MG PO
[2024-04-18 11:00] VITALS: PULSE 80; RESP 18; TEMP 97.9; O2SAT 100
[2024-04-18] MEDS ORDERED: OFLOXACIN5 ML OP (12:04)
== END 2024-04-18 12:50 | disposition home or self-care (01) ==
LOC: ER 10:40
DX: H10.9 Unspecified conjunctivitis (principal); I50.9 Heart failure, unspecified; E78.5 Hyperlipidemia, unspecified
CPT/HCPCS: 99283

== ENCOUNTER 2024-04-24 16:34 | Inpatient (IN) | payer MEDICARE ==
[~2024-04-24] VITALS: Ht 172.7 cm; Wt 80.3 kg
[~2024-04-24 16:34] MED LIST changes: +OFLOXACIN5 ML OP
[2024-04-24] MEDS: SODIUM CHLORIDE 0.9% 1000ML 1,000 ML IV STA (18:06)
[2024-04-24] MEDS: ONDANSETRON HCL INJ 2MG/ML 2ML 2 MG/ML VIAL IV STA (18:07)
[2024-04-24 18:08] LABS: BASOPHILS % 0.3 % (0.0-1.0); EOSINOPHILS % 0.5 % (0.0-6.0); HEMATOCRIT 29.2 % (38.2-49.6); HEMOGLOBIN 9.8 g/dL (14.0-18.0); LYMPHOCYTES # (AUTO) 0.3 (1.0-3.2); LYMPHOCYTES % 7.2 % (18.0-39.1); MEAN CORPUSCULAR HEMOGLOBIN 34.4 pg (28-32); MEAN CORPUSCULAR HGB CONC 33.6 g/dL (31-35); MEAN CORPUSCULAR VOLUME 102.5 fL (81-99); MONOCYTES # (AUTO) 0.2 (0.2-0.8); MONOCYTES % 5.9 % (4.4-11.3); NEUTROPHILS # (AUTO) 3.4 (2.1-6.9); NEUTROPHILS % 85.8 % (38.7-80.0); PLATELET COUNT 111 x10e3/uL (140-360); RED BLOOD COUNT 2.85 x10e6/uL (4.3-5.7); RED CELL DISTRIBUTION WIDTH 12.7 % (11.7-14.4)
[2024-04-24 18:24] LABS: ALBUMIN 3.1 g/dL (3.5-5.0); ALBUMIN/GLOBULIN RATIO 0.6 (0.8-2.0); ANION GAP 14.2 mmol/L (8-16); BILIRUBIN,TOTAL 0.5 mg/dL (0.2-1.2); CALCIUM 8.8 mg/dL (8.4-10.2); CREATININE, SERUM 0.82 mg/dL (0.72-1.25); POTASSIUM 4.2 mmol/L (3.5-5.1); TOTAL PROTEIN 8.5 g/dL (6.5-8.1)
[2024-04-24 19:28] LABS: BILIRUBIN,URINE NEGATIVE (NEGATIVE); CLARITY,URINE SL CLOUDY (CLEAR); COLOR,URINE YELLOW (YELLOW); GLUCOSE, URINE NEGATIVE (NEGATIVE); KETONES,URINE NEGATIVE (NEGATIVE); LEUKOCYTE ESTERASE ,URINE SMALL (NEGATIVE); NITRITE,URINE NEGATIVE (NEGATIVE); PH,URINE 7 (5 - 7); PROTEIN,URINE DIPSTICK 1+ (NEGATIVE); URINE UROBILINOGEN 0.2 mg/dL (0.2 - 1)
[2024-04-24 19:41] LABS: BACTERIA,URINE MODERATE /HPF
[2024-04-24] MEDS: KETOROLAC TROMETHAMINE 30 MG/ML VIAL IV STA (21:30)
[2024-04-24 22:26] VITALS: PULSE 88; RESP 16; TEMP 99.7
[2024-04-24 22:52] VITALS: PULSE 85; RESP 20; O2SAT 100
[2024-04-25] VITALS (12 sets, daily range): BP systolic 107–132; BP diastolic 50–71; PULSE 78–97; RESP 17–20; TEMP 98–99.8; O2SAT 96–100
[2024-04-25] MEDS ORDERED: FINASTERIDE5 MG PO (00:30)
[2024-04-25 06:09] LABS: BASOPHILS % 0.3 % (0.0-1.0); EOSINOPHILS # (AUTO) 0.1 (0.0-0.4); EOSINOPHILS % 2.3 % (0.0-6.0); HEMATOCRIT 27.4 % (38.2-49.6); HEMOGLOBIN 9.1 g/dL (14.0-18.0); LYMPHOCYTES # (AUTO) 0.2 (1.0-3.2); LYMPHOCYTES % 5.2 % (18.0-39.1); MEAN CORPUSCULAR HEMOGLOBIN 34.1 pg (28-32); MEAN CORPUSCULAR HGB CONC 33.2 g/dL (31-35); MEAN CORPUSCULAR VOLUME 102.6 fL (81-99); MONOCYTES # (AUTO) 0.2 (0.2-0.8); MONOCYTES % 5.7 % (4.4-11.3); NEUTROPHILS # (AUTO) 3.3 (2.1-6.9); NEUTROPHILS % 85.7 % (38.7-80.0); PLATELET COUNT 100 x10e3/uL (140-360); RED BLOOD COUNT 2.67 x10e6/uL (4.3-5.7); RED CELL DISTRIBUTION WIDTH 12.6 % (11.7-14.4); WHITE BLOOD COUNT 3.84 x10e3/uL (4.8-10.8)
[2024-04-25 06:35] LABS: ANION GAP 8.9 mmol/L (8-16); CALCIUM 8.9 mg/dL (8.4-10.2); CREATININE, SERUM 0.72 mg/dL (0.72-1.25); POTASSIUM 3.9 mmol/L (3.5-5.1)
[2024-04-25] MEDS ORDERED: GUAIFENESIN 200 MG/10 ML UDC PO PRN (11:30)
[2024-04-25 12:08] LABS: INFLUENZAE A&B ANTIGEN (RAPID) NEGATIVE (NEGATIVE); RESPIRATORY SYNC. VIRUS NEGATIVE (NEGATIVE)
[2024-04-25] MEDS ORDERED: IOPAMIDOL 370 MG/ML 100 ML INFUS..BTL INJ ONE (12:32)
[2024-04-25] MEDS: ALBUTEROL/IPRATROPIUM 3 ML NEB NEB SCH (13:09)
[2024-04-26] VITALS (11 sets, daily range): BP systolic 108–126; BP diastolic 50–67; PULSE 70–98; RESP 12–20; TEMP 97.7–99.5; O2SAT 96–100
[2024-04-26 01:48] LABS: % IRON SATURATION 20 % (15-50); IRON 34 ug/dL (65-175); TOTAL IRON BINDING CAPACITY 171 ug/dL (261-478); TRANSFERRIN 122 mg/dL (174-364)
[2024-04-26] MEDS: TAMSULOSIN HCL 0.4 MG CAP PO SCH (08:54)
[2024-04-26] MEDS: METHYLPREDNISOLONE SOD SUCC 40 MG/ML VIAL 1ML IV ONE (08:54)
[2024-04-26] MEDS: FINASTERIDE 5 MG TAB PO SCH (08:54)
[2024-04-27] VITALS (8 sets, daily range): BP systolic 106–118; BP diastolic 54–60; PULSE 62–95; RESP 16–22; TEMP 97.3–97.5; O2SAT 96–100
[2024-04-27 05:47] LABS: HEMATOCRIT 25.2 % (38.2-49.6); HEMOGLOBIN 8.3 g/dL (14.0-18.0); LYMPHOCYTES # (AUTO) 0.3 (1.0-3.2); LYMPHOCYTES % 11.4 % (18.0-39.1); MEAN CORPUSCULAR HGB CONC 32.9 g/dL (31-35); MEAN CORPUSCULAR VOLUME 103.3 fL (81-99); MONOCYTES # (AUTO) 0.2 (0.2-0.8); MONOCYTES % 9.7 % (4.4-11.3); NEUTROPHILS # (AUTO) 1.8 (2.1-6.9); NEUTROPHILS % 77.6 % (38.7-80.0); PLATELET COUNT 99 x10e3/uL (140-360); RED BLOOD COUNT 2.44 x10e6/uL (4.3-5.7); RED CELL DISTRIBUTION WIDTH 12.4 % (11.7-14.4); WHITE BLOOD COUNT 2.37 x10e3/uL (4.8-10.8)
[2024-04-27 05:59] LABS: ANION GAP 11.6 mmol/L (8-16); CALCIUM 8.7 mg/dL (8.4-10.2); CREATININE, SERUM 0.75 mg/dL (0.72-1.25); POTASSIUM 3.6 mmol/L (3.5-5.1)
[2024-04-27] MEDS: SODIUM FERRIC GLUCONATE COMPLX 125 MG in SODIUM CHLORIDE 0.9% 100 ML IV SCH (09:50)
[2024-04-27 11:53] LABS: BAND NEUTROPHILS % (MANUAL) 5 %; LYMPHOCYTES % (MANUAL) 9 % (19-48); MONOCYTES % (MANUAL) 10 % (3.4-9.0); NEUTROPHILS % (MANUAL) 76 % (40-74); PLATELET ESTIMATE MODERATELY DECREASED; PLATELET MORPHOLOGY COMMENT NORMAL
[2024-04-27 11:54] LABS: HYPOCHROMASIA MODERATE
[2024-04-27] MEDS ORDERED: PANTOPRAZOLE SOD 40 MG TABEC PO SCH (16:30)
[2024-04-27] MEDS ORDERED: AZITHROMYCIN 250 MG TAB PO SCH (20:00)
== END 2024-04-27 15:05 | disposition home or self-care (01) | DRG 194 ==
LOC: ER 17:27 → ERHOLD 22:20 → MED/SURG2 23:39
PROVIDERS: ADMIT Internal Medicine; ATTEND Internal Medicine
DX: J18.9 Pneumonia, unspecified organism (principal); D61.818 Other pancytopenia; J98.11 Atelectasis; D63.8 Anemia in other chronic diseases classified elsewhere; E78.5 Hyperlipidemia, unspecified; N40.0 Benign prostatic hyperplasia without lower urinary tract symptoms; I50.9 Heart failure, unspecified; K43.9 Ventral hernia without obstruction or gangrene; R11.2 Nausea with vomiting, unspecified; K57.30 Diverticulosis of large intestine without perforation or abscess without bleeding; Z11.52 Encounter for screening for COVID-19; Z90.49 Acquired absence of other specified parts of digestive tract; Z79.899 Other long term (current) drug therapy
CPT/HCPCS: 0223U; 36415; 71045; 71260; 74177; 80048; 80053; 81001; 82607; 82746; 83540; 83605; 83690; 83880; 84466; 84484; 85025; 85045; 87040; 87086; 87400; 87420; 93306; 94640; 94799; 99284; J0696; J1885; J2405; J2470; J2543; J2916; J2919; J7030; J7050; Q9967